=== PATIENT | male | born 1970 | race Caucasian/White ===

== ENCOUNTER 2017-01-26 14:44 | Inpatient (IN) | payer OTHER ==
--- NOTE | 2017-01-26 15:10 | EDPHY ---
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 - Social History Smoking Status: Never smoked Constitutional: Initial Vital Signs Temperature (C) 37.4 C 01/26/17 14:46 Heart Rate 119 H 01/26/17 14:46 Respiratory Rate 20 01/26/17 14:46 Blood Pressure 121/99 H 01/26/17 14:46 O2 Sat (%) 93 01/26/17 14:46 O2 Delivery Mode Room Air Allergies/Adverse Reactions: No Known Allergies Allergy (Unverified 10/28/09 13:43) Home Medications: Medication Instructions Recorded Cymbalta 10/28/09 Immodium 10/28/09 LYRICA 03/02/10 OXYBUTYNIN CHLORIDE 03/02/10 VICODIN 5-500 TABLET 03/02/10 Medical Decision Making ED Course/Re-evaluation: CHIEF COMPLAINT: HISTORY OF PRESENT ILLNESS: must have 4 elements: Location, Quality, Severity , Duration, Timing, Context, Modifying Factors, Associated Signs and Symptoms REVIEW OF SYSTEMS: A 10 point review of systems was performed and is negative with the exception of the elements mentioned in the history of present illness. PHYSICAL EXAM: HR, BP, O2 Sat, RR. Temp noted General Appearance: Alert, well hydrated, appropriate, and non-toxic appearing. Head: Atraumatic without scalp tenderness or obvious injury Eyes: Pupils equal, round, reactive to light and accommodation, EOMI, no trauma , no injection. Ears: Clear bilaterally, no perforation, normal landmarks Nose: Atraumatic, no rhinorrhea, clear. Throat: There is no erythema or exudates, no lesions, normal tonsils, mucus membranes moist. Neck: Supple, 2+ carotid upstroke, nontender, no lymphadenopathy. Respiratory: No retractions, no distress, no wheezes, and no accessory muscle use. Lungs are clear to auscultation bilaterally. Cardiovascular: Regular rate and rhythm, no murmurs, rubs, or gallops. Bilateral carotid, radial, dorsalis pedis, and posterior tibial pulses intact. Good capillary refill all extremities. Gastrointestinal: Abdomen is soft, nontender, non-distended, no masses, no rebound, no guarding, no peritoneal signs. Musculoskeletal: Normal active ROM of all extremities, atraumatic. Neurological: Alert, appropriate, and interactive. The patient has normal DTRs and non-focal cranial nerves, motor, sensory, and cerebellar exam. Skin: No rashes, good turgor, no nodules on palpation. Past medical history: Past surgical history: Family history: Social history: DIAGNOSTICS/PROCEDURES/CRITICAL CARE TIME: DIFFERENTIAL DIAGNOSIS: MEDICAL DECISION MAKING: Departure - Departure Referrals: Luis Hernandez MD [Primary Care Provider] - As per Instructions
[2017-01-26] MEDS ORDERED: ACETAMINOPHEN 500 MG TAB ONE (15:18)
[2017-01-26] MEDS ORDERED: ACETAMINOPHEN 500 MG TAB PO ONE (15:20)
[2017-01-26] MEDS ORDERED: NS 1,000 ML IV ONE (15:28)
[2017-01-26 15:30] LABS: % IMMATURE GRANULYOCYTES 0.5 % (0.0-1.1); ABSOLUTE IMMATURE GRANULOCYTES 0.06 10^3/uL (0.00-0.10); ADD DIFF? NO; ADD MORPH? NO; ADD SCAN? NO; ATYPICAL LYMPHOCYTE FLAG 0 (0-99); FRAGMENT RBC FLAG 0 (0-99); HEMATOCRIT 45.4 % (40.0-51.0); LEFT SHIFT FLG 20 (0-99); LIPEMIA HEMOLYSIS FLAG 80 (0-99); MEAN CELL HEMOGLOBIN 27.2 pg (27.9-34.1); MEAN CELL VOLUME 82.4 fL (81.5-99.8); MEAN PLATELET VOLUME 9.8 fL (8.7-11.7); PLATELET CLUMPS FLAG 0 (0-99); PLATELET COUNT 132 10^3/uL (150-400); RED BLOOD CELL COUNT 5.51 10^6/uL (4.40-6.38); RED CELL DISTRIBUTION WIDTH 14.5 % (11.5-15.2)
[2017-01-26] MEDS ORDERED: ERTAPENEM 1 GM in NS 100 ML IV ONE (15:40)
[2017-01-26] MEDS ORDERED: VANCOMYCIN HCL/NORMAL SALINE 250 ML IV ONE (15:40)
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
[2017-01-26 15:47] LABS: ANION GAP 13 mEq/L (8-16); CALCIUM 9.4 mg/dL (8.5-10.4); CARBON DIOXIDE 25 mEq/l (22-31); CHLORIDE 101 mEq/L (97-110); CREATININE 0.6 mg/dL (0.7-1.3); GLOMERULAR FILTRATION RATE > 60; GLUCOSE 111 mg/dL (70-100); POTASSIUM 4.1 mEq/L (3.5-5.2); SODIUM 139 mEq/L (134-144)
[2017-01-26 16:13] LABS: COLOR AMBER; LEUKOCYTE ESTERASE,URINE 3+ (NEGATIVE); NITRITE,URINE NEGATIVE (NEGATIVE)
[2017-01-26] MEDS ORDERED: NS 2,600 ML IV ONE (16:19)
[2017-01-26 16:29] LABS: AMORPHOUS PRESENT /hpf (NONE-1+); BACTERIA 4+ /hpf (NONE SEEN); MUCUS 1+ /lpf (NONE-1+); RBC,URINE 25-50 /hpf (0-3); WBC,URINE 50-182 /hpf (0-3)
[2017-01-26] MEDS ORDERED: ONDANSETRON 4 MG/2 ML VIAL IVP PRN (17:21)
[2017-01-26] MEDS ORDERED: ONDANSETRON DISINTEGRATING 4 MG TAB PO PRN (17:21)
[2017-01-26] MEDS ORDERED: oxyCODONE IR 5 MG TAB ONE (18:20)
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
[2017-01-26] MEDS: VANCOMYCIN 125 MG/2.5 ML UDL PO SCH (20:21)
[2017-01-26] MEDS: NS 1,000 ML IV SCH (20:21)
--- NOTE | 2017-01-26 20:22 | GCON ---
[f rep st] CONSULTATION INFECTIOUS DISEASES CONSULTATION. DATE OF CONSULTATION: 01/26/2017 REFERRING PHYSICIAN: Hue Nagy MD REASON FOR CONSULTATION: Sepsis due to left lower extremity cellulitis versus urinary tract infecti on. HISTORY OF PRESENT ILLNESS: Patient is a 46-year-old male with a past medical history of C6-7 parap legia, who I am asked to see in consultation for sepsis associated with left lower extremity celluli tis versus urinary tract infection. Patient has been followed in wound clinic for chronic left lowe r extremity ulcerations. Earlier today he developed the abrupt onset of fever and shaking chills. He was seen in [facility] Care [facility] and noted to have increasing erythema of the left lower extremity a nd described having increased sediment and foul-smelling urine. Based on these complaints he was re ferred to the emergency department for a hospital admission. Patient has an indwelling suprapubic c atheter and experiences urinary tract infection approximately once per year. His suprapubic cathete r is changed typically at the beginning of each month. He describes having increasing sediment and foul odor for the last 4 days and was started on methenamine. The patient does note that today his left lower extremity appeared more erythematous. He did not experience nausea, vomiting, or diarrhe a. No cough or shortness of breath. Patient does describe having clostridium difficile colitis skip roximately 3 months ago after treatment of urinary tract infection with ciprofloxacin. He describes having initial therapy with metronidazole, and subsequently 2 courses of oral vancomycin were requi red for resolution. In the emergency department he was noted to have a leukocytosis and temperature to 39.1. Venous lactate was normal at 1.7. He did have some hypotension, which has improved with fluid resuscitation. He notes his normal systolic blood pressure is approximately 100. Patient was given vancomycin and ertapenem empirically after blood and urine cultures were obtained. Given the above findings, I am now asked to assist in his ongoing management. PAST MEDICAL HISTORY: C6-7 paraplegia, history of sacral osteomyelitis, which he is unclear if this was due to MRSA, depression, chronic suprapubic catheter, gastroesophageal reflux, , recurrent Clos tridium difficile. PAST SURGICAL HISTORY: Cholecystectomy, cervical spine surgery. CURRENT MEDICATIONS: Status post vancomycin and ertapenem x1, Oxy IR as needed for pain, Lovenox 40 mg subcutaneous daily; prior to admission other medications included fentanyl patch, Lyrica, oxybut ynin, duloxetine, Wellbutrin, and methenamine. ALLERGIES: No known drug allergies. SOCIAL HISTORY: Patient does not smoke or drink alcohol. He lives at home with assistance from a [employer]. FAMILY HISTORY: Breast cancer and colon cancer. REVIEW OF SYSTEMS: Outside that noted in the HPI, remainder of 10-system review is unremarkable. PHYSICAL EXAMINATION: VITAL SIGNS: Temperature maximum 39.1, temperature current 37.1, heart rate 118, respiratory rate 16, blood pressure 91/53, oxygen saturation 93% on room air. GENERAL: Torie ramirez is a paraplegic male in no acute distress, who appears nontoxic. HEENT: There is no scleral icte harleen, conjunctival injection, or conjunctival petechiae. Oropharynx shows no lesions with dentition in fair repair with dry mucous membranes. There is no nasal discharge. There is no tenderness over the frontal, maxillary or mastoid area. NECK: No palpable lymphadenopathy or thyromegaly. CHEST: Clear to auscultation bilaterally without adventitious sounds. The respiratory effort is normal. CARDIOVASCULAR: Tachycardiac, without murmurs, gallops, or rubs. ABDOMEN: Soft, nontender, nondi stended. There is no palpable organomegaly. Bowel sounds are present. MUSCULOSKELETAL: Left lowe r extremity shows erythema over the dorsal aspect of the foot, extending to above the knee with some petechial elements more laterally; this is warm to palpation with associated edema; ulcerations are examined without any evidence of purulence. SKIN: See musculoskeletal exam; there is no stigmata of endocarditis. LYMPHATICS: No cervical or supraclavicular nodes palpable. NEUROLOGIC: Patient is paraplegic. He is alert and interacts appropriately. There are contractures of the hands bilate rally. LABORATORY DATA: White blood cell count 13.2, hematocrit 45.4, platelets 132, neutrophils 93%. Ser um creatinine 0.6, venous lactate 1.7. Urinalysis shows 25-50 red blood cells and 50-182 white bloo d cells with 4+ bacteria. Blood cultures and urine cultures are pending. IMPRESSION: 1. Severe sepsis likely due to left lower extremity cellulitis, with also consideration of complica loco urinary tract infection in the setting of chronic suprapubic catheter. Most likely this will be associated with beta-hemolytic streptococci or Staphylococcus aureus with methicillin-resistant Sta phylococcus aureus consideration. Given chronic ulcerations, gram-negative rods or anaerobes also o f consideration. He appears to be responding to initial fluid resuscitation, in terms of sepsis phy siology. 2. Recurrent Clostridium difficile colitis: Given recent history of recurrent Clostridium difficil e colitis and need for broad-spectrum antibiotic therapy, we will use suppressive oral vancomycin wh ile on broad-spectrum therapy. RECOMMENDATIONS: 1. Vancomycin 1.5 g IV q.12 hours. 2. Zosyn 4.5 g IV q.8 hours. 3. Vancomycin 125 mg p.o. b.i.d. 4. Followup blood and urine cultures as available. 5. Follow clinical response to above measures. Thank you for this consultation. We will continue to follow patient with you. /[id number]/MODL
[2017-01-26] MEDS: PIPERACILLIN/TAZO 4.5 GM/DEX 100 ML IV SCH (21:40)
[2017-01-26] MEDS: oxyCODONE IR 5 MG TAB PO PRN (23:53)
[2017-01-27] MEDS: VANCOMYCIN 1.5 GM in D5W 250 ML IV SCH ×2 (02:22→14:48)
[2017-01-27 05:08] LABS: HEMATOCRIT 38.6 % (40.0-51.0); HEMOGLOBIN 12.5 g/dL (13.7-17.5); MEAN CELL HEMOGLOBIN 26.9 pg (27.9-34.1); MEAN CELL HEMOGLOBIN CONCENTR. 32.4 g/dL (32.4-36.7); RED BLOOD CELL COUNT 4.65 10^6/uL (4.40-6.38); RED CELL DISTRIBUTION WIDTH 14.8 % (11.5-15.2)
[2017-01-27] MEDS: PIPERACILLIN/TAZO 4.5 GM/DEX 100 ML IV SCH ×3 (05:50→21:32)
[2017-01-27] MEDS: NS 1,000 ML IV SCH ×3 (05:50→20:26)
[2017-01-27] MEDS: oxyCODONE IR 5 MG TAB PO PRN (05:52)
[2017-01-27] MEDS: VANCOMYCIN 125 MG/2.5 ML UDL PO SCH ×2 (08:28→20:27)
[2017-01-27] MEDS ORDERED: ENOXAPARIN 40 MG/0.4 ML SYR SC SCH (09:00)
[2017-01-27] MEDS ORDERED: ERTAPENEM 1 GM in NS 100 ML IV SCH (09:00)
[2017-01-27] MEDS ORDERED: HYDROCODONE/APAP 5/325 TAB PO PRN (09:02)
[2017-01-27] MEDS ORDERED: fentaNYL 75 MCG PATCH TD SCH (09:45)
[2017-01-27] MEDS: OXYBUTYNIN CHLORIDE 5 MG TAB PO SCH ×2 (09:54→20:29)
[2017-01-27] MEDS: PREGABALIN 100 MG CAP PO SCH ×2 (09:54→20:28)
[2017-01-27] MEDS: DULoxetine 60 MG CAP PO SCH ×2 (09:54→20:28)
[2017-01-27] MEDS: buPROPion XL 150 MG TAB PO SCH ×2 (09:55→20:29)
[2017-01-27] MEDS: HYDROmorphONE/DILAUDID 1 MG/ML SYR IVP PRN ×5 (11:56→22:36)
[2017-01-27] MEDS ORDERED: METHENAMINE MANDELATE 1 GM PO SCH (12:00)
[2017-01-27 12:42] LABS: ANION GAP 11 mEq/L (8-16); CARBON DIOXIDE 22 mEq/l (22-31); CHLORIDE 103 mEq/L (97-110); CREATININE 0.7 mg/dL (0.7-1.3); GLOMERULAR FILTRATION RATE > 60; GLUCOSE 110 mg/dL (70-100); SODIUM 136 mEq/L (134-144)
--- NOTE | 2017-01-27 12:51 | WOCRNPDOC ---
[facility] Advanced Assessment Note - Skin Integrity Problem, Advanced Assess Left Lower Distal Leg Wounds Dressing Type: Allevyn Life, Hydrofera Blue Ready (secured with steristrips) Dressing Description: Clean/Dry, Intact Exudate Amount: Scant Exudate Color: Yellow Exudate Characteristic(s): Serous Integumentary Issue Intervention: Dressing Initialed & Dated (01/26; placed at [facility]), Visualized Under Dressing Tanna Wound Tissue: Erythema Tanna Wound Swelling: Mild Site Odor: None Skin Integrity Problem Comment: Patient reports that his out-patient wound care is being managed weekly by Dr. Nagy at the [facility], and that his most recent visit and dressing change there was yesterday. The clean, dry, intact dressings were left in place pending clarification from Dr. Nagy and ID about in-patient plan of care. Left Lateral Heel Pressure Injury Dressing Type: Allevyn Life Dressing Description: Not Intact, Saturated Exudate Amount: Moderate Exudate Color: Red Exudate Characteristic(s): Bloody, Dried Integumentary Issue Intervention: Dressing Changed (hydrofera blue ready foam, secured with steristrips; Allevyn covering), Dressing Initialed & Dated, Dressing Removed Tanna Wound Tissue: Erythema (streaking from foot, along LE), Macerated (applied Cavilon skin prep), Raw Tanna Wound Swelling: Mild Wound Bed Color: Red Wound Bed Constitution: Granulation Tissue Wound Edges: Irregular Site Odor: None Site Measurement - Head-to-Toe Length X Width X Depth (cm): 2 x 0.8 x 0.7 Pressure Injury Present on Admit: Yes (out-patient care at [facility]) Lymphedema Present: Yes Peripheral Edema Location & Description: 4+ pitting foot and ankle edema present. Provided KAILASH Bustos with size D tubigrip to apply to LLE. Bilateral LEs are "floating" on pillows. Skin Integrity Problem Comment: Non-intact dressing was removed and new dressing modeled on the adjacent intact dressings was placed after irrigating wound with sterile NS and periwound was protected with Cavilon prep. KAILASH Barrera assisting. Generalized Perineum Incont Assoc Dermatitis Dressing Type: Open to Air Exudate Amount: Scant Exudate Color: Clear Exudate Characteristic(s): Serous (vs urine and/or perspiration) Integumentary Issue Intervention: Barrier Cream Applied (Cavilon Durable Barrier Cream) Tanna Wound Tissue: Intact Tanna Wound Swelling: None Site Odor: None Skin Integrity Problem Comment: Skin surrounding catheter at distal abdomen and extending to perineum and scrotum are slightly moist, shiny, and reddened. Patient was in the process of eliminating stool at the time of eval. After cleaning with tanna wipes, applied Cavilon Barrier Cream; KAILASH Bustos assisting. Scars are visible above sacral and across lower lumbar areas, and patient mobility is very restricted by paraplegia: A P500 mattress was ordered to augment protection of skin integrity.
--- NOTE | 2017-01-27 14:04 | HOSPPROG ---
Hospitalist Progress Note Assessment/Plan: assessment: 46-year-old male presents with severe sepsis in the setting of cellulitis with lower extremity paralysis Plan: 1. Severe sepsis. Evidenced by fever, tachycardia, tachypnea, leukocytosis, hypotension with systolic blood pressure in the 70s, demonstrating autonomic dysregulation in the setting of infection -acute new problem to this provider further workup indicated -given the systolic blood pressure is currently 79, get venous lactic acid stat -if lactic acid level is normal, repeat at 4:00 p.m. and run normal saline at 200 cc/hour, bolusing for systolic blood pressures less than 80 -if lactic acid is abnormal, transfer to step-down unit bolus 1 L normal saline now and place central line consider pressors -continue empiric IV antibiotics -continue to monitor CBC -discussed with Dr. Issac Olea, we both agree that most likely source is cellulitic 2. cellulitis. Acute, non purulent, cover empirically with IV vancomycin and Zosyn - get left lower extremity ultrasound to ensure he has no DVT 3. paralysis. Bilateral lower extremity paralysis with absent sensation, placing him at high risk for recurrent cellulitis 4. chronic urinary retention. Suprapubic catheter, urinalysis may be more indicative of chronic catheter rather than over UTI, monitor urine culture Diet. Regular Prophylaxis. High risk patient, Lovenox 40 Code. Full Disposition. Anticipated discharge is uncertain this time, patient remains highly medically complex with high risk of morbidity and/or mortality Subjective: patient reports that he has a sore throat and headache Objective: Vital Signs Temp Pulse Resp BP Pulse Ox 37.0 C 102 H 14 79/42 L 2 L 01/27/17 11:15 01/27/17 11:15 01/27/17 11:15 01/27/17 11:15 01/27/17 11:15 Laboratory Results 01/27/17 04:17 01/27/17 12:05 01/26/17 01/27/17 01/28/17 05:59 05:59 05:59 Intake Total 4457 550 Output Total 1100 Balance 3357 550 - Physical Exam Constitutional: no apparent distress, chronically ill appearing, uncomfortable, No not in pain Cardiovascular: tachycardia, edema ( 2+ left lower extremity edema), No systolic murmur, No irregularly irregular Respiratory: no respiratory distress, no rales or rhonchi, clear to auscultation Gastrointestinal: normoactive bowel sounds, soft, non-tender abdomen, no palpable masses Skin: other ( blotchy erythematous patches across the left lower extremity from the knee distally, mild blanchable bili, tense edematous skin without open wounds noted) Neurologic: AAOx3, weakness ( motor strength 0/5 bilateral lower extremities), No sensation intact bilaterally ( absent sensation bilaterally) Psychiatric: interacting appropriately, not anxious, not encephalopathic, thought process linear ICD10 Worksheet Patient Problems: Problems Problem Status Onset Cellulitis Acute Paraplegia Acute Severe sepsis with acute organ dysfunction Acute C. difficile diarrhea Acute 09/21/16
[2017-01-27] MEDS: METHENAMINE MANDELATE 1 GM PO SCH ×2 (16:42→20:30)
--- NOTE | 2017-01-27 17:50 | PCMIDPN ---
Assessment/Plan: Assessment/Plan: * Severe sepsis due to left lower extremity cellulitis with possible contribution from catheter associated UTI (chronic suprapubic catheter): Clinically improved with antibiotic therapy and management of sepsis physiology. Cellulitis without significant interval change although lymphangitis in left thigh noted. 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 Continue empiric vancomycin and Zosyn pending culture data. Follow creatinine and assess vancomycin trough tomorrow. * Left lower extremity DVT: Reviewed findings and plan with hospitalist. 01/27/17 17:46 01/27/17 17:48 Subjective: Feels better today without rigors overnight. Did have some shorter duration chills present. Objective: Vital Signs Temp Pulse Resp BP Pulse Ox 36.9 C 103 H 8 L 87/46 L 94 01/27/17 15:43 01/27/17 15:43 01/27/17 15:43 01/27/17 15:43 01/27/17 15:43 Laboratory Results 01/27/17 04:17 01/27/17 12:05 01/26/17 01/27/17 01/28/17 05:59 05:59 05:59 Intake Total 4457 550 Output Total 1100 Balance 3357 550 Vancomycin # 1 Zosyn # 1 Blood cultures x2 pending Urine culture with growth of lactose fermenting gram-negative angélica x2 Ultrasound of left lower extremity showing DVT - Physical Exam General Appearance: alert, no apparent distress EENT: No thrush Respiratory: lungs clear, No respiratory distress Cardiac/Chest: tachycardia Extremities: inflammation (Erythema extending from foot to knee region which is similar in appearance to yesterday; no bulla present; no change in chronic ulcerations over lower extremity), swelling (3+ edema left lower extremity) Abdomen: non-tender, No distended Lymphatic: other (Lymphangitis present in left medial thigh) ICD10 Worksheet Patient Problems: Problems Problem Status Onset Cellulitis Acute Paraplegia Acute Severe sepsis with acute organ dysfunction Acute C. difficile diarrhea Acute 09/21/16
[2017-01-27] MEDS ORDERED: NS 1,000 ML IV ONE (18:07)
[2017-01-27] MEDS: WARFARIN SODIUM 5 MG TAB PO SCH (18:12)
[2017-01-27] MEDS: ACETAMINOPHEN 325 MG TAB PO PRN (18:13)
[2017-01-27] MEDS ORDERED: KETOROLAC 30 MG/1 ML SDV IVP ONE (18:50)
[2017-01-27] MEDS: ENOXAPARIN 100 MG/ML SYR SC SCH (20:27)
[2017-01-28] MEDS: NS 1,000 ML IV SCH (01:53)
[2017-01-28] MEDS: HYDROmorphONE/DILAUDID 1 MG/ML SYR IVP PRN ×9 (01:53→21:27)
[2017-01-28] MEDS: METHENAMINE MANDELATE 1 GM PO SCH ×4 (04:31→21:19)
[2017-01-28 04:32] LABS: % IMMATURE GRANULYOCYTES 0.6 % (0.0-1.1); ABSOLUTE IMMATURE GRANULOCYTES 0.04 10^3/uL (0.00-0.10); ADD DIFF? NO; ADD MORPH? NO; ADD SCAN? NO; ATYPICAL LYMPHOCYTE FLAG 0 (0-99); FRAGMENT RBC FLAG 0 (0-99); HEMATOCRIT 33.4 % (40.0-51.0); HEMOGLOBIN 10.8 g/dL (13.7-17.5); LEFT SHIFT FLG 10 (0-99); LIPEMIA HEMOLYSIS FLAG 80 (0-99); MEAN CELL HEMOGLOBIN 26.9 pg (27.9-34.1); MEAN CELL HEMOGLOBIN CONCENTR. 32.3 g/dL (32.4-36.7); MEAN CELL VOLUME 83.3 fL (81.5-99.8); MEAN PLATELET VOLUME 10.3 fL (8.7-11.7); PLATELET CLUMPS FLAG 0 (0-99); PLATELET COUNT 84 10^3/uL (150-400); RED BLOOD CELL COUNT 4.01 10^6/uL (4.40-6.38); RED CELL DISTRIBUTION WIDTH 14.9 % (11.5-15.2)
[2017-01-28 04:36] LABS: INR 1.67 (0.83-1.16); PROTIME(PATIENT) 19.7 SEC (12.0-15.0)
[2017-01-28 04:46] LABS: ANION GAP 5 mEq/L (8-16); CALCIUM 7.6 mg/dL (8.5-10.4); CARBON DIOXIDE 23 mEq/l (22-31); CHLORIDE 111 mEq/L (97-110); CREATININE 0.6 mg/dL (0.7-1.3); GLOMERULAR FILTRATION RATE > 60; GLUCOSE 94 mg/dL (70-100); POTASSIUM 2.9 mEq/L (3.5-5.2); SODIUM 139 mEq/L (134-144)
[2017-01-28] MEDS: VANCOMYCIN 1.5 GM in D5W 250 ML IV SCH (04:55)
[2017-01-28] MEDS: PIPERACILLIN/TAZO 4.5 GM/DEX 100 ML IV SCH (06:33)
[2017-01-28] MEDS: fentaNYL 75 MCG PATCH TD SCH (06:34)
[2017-01-28] MEDS: OXYBUTYNIN CHLORIDE 5 MG TAB PO SCH ×2 (08:24→21:28)
[2017-01-28] MEDS: buPROPion XL 150 MG TAB PO SCH ×2 (08:24→21:28)
[2017-01-28] MEDS: PREGABALIN 100 MG CAP PO SCH ×2 (08:24→21:28)
[2017-01-28] MEDS: DULoxetine 60 MG CAP PO SCH ×2 (08:24→21:28)
[2017-01-28] MEDS ORDERED: POTASSIUM CL 20 MEQ TAB PO ONE (08:47)
[2017-01-28] MEDS ORDERED: MAGNESIUM SULF 1 GM/DEXTROSE 100 ML IV ONE (08:47)
[2017-01-28] MEDS: ENOXAPARIN 100 MG/ML SYR SC SCH ×2 (09:15→21:29)
[2017-01-28] MEDS: VANCOMYCIN 125 MG/2.5 ML UDL PO SCH ×2 (09:17→21:28)
[2017-01-28] MEDS: HYDROmorphONE/DILAUDID 2 MG TAB PO PRN (09:20)
[2017-01-28] MEDS: D5W 1/2 NS W/ 40 KCl/L 1,000 ML IV SCH ×2 (10:10→18:43)
[2017-01-28] MEDS: oxyCODONE IR 5 MG TAB PO PRN (10:32)
--- NOTE | 2017-01-28 11:31 | PCMIDPN ---
Assessment/Plan: #Sepsis secondary to LLE cellulitis +/- complicated UTI with suprapubic in place - clinically improved. WBC decreasing, Hemodynamics improved. Still w fever yesterday # Severe LLE cellulitis, suspect strep mediated based on clinical appearance. First exam today, but based on documentation of other providers exams, erythema improved Recommendations: --Narrow antibiotics to ceftriaxone alone will cover Klebs in urine and MSSA and streptococcus. No h/o MRSA. --Hold off on compression L leg --elevated L leg as feasible --dc zosyn and vancomycin --assess if need to change suprapubic cath Microbiology 01/26/17 16:00 Urine,Suprapubic 100K Klebsiella Oxytoca; Gram Neg Praveen Lactose [employer]#2 01/26/17 15:50 Blood Cx (2) NGTD Abx # 2 zosyn/vancomycin Subjective: patient feeling a bit better increased stool output Objective: Vital Signs Temp Pulse Resp BP Pulse Ox 36.5 C 83 16 110/70 96 01/28/17 09:24 01/28/17 09:24 01/28/17 09:24 01/28/17 09:24 01/28/17 09:24 Laboratory Results 01/28/17 04:20 01/28/17 04:10 01/27/17 01/28/17 01/29/17 05:59 05:59 05:59 Intake Total 4457 4071 Output Total 1100 3600 900 Balance 3357 471 -900 - Physical Exam General Appearance: alert, no apparent distress, non-toxic EENT: No scleral icterus Respiratory: lungs clear Neck: supple Cardiac/Chest: regular rate, rhythm Extremities: swelling (LLE to just above knee), erythema (prominent erythema dorsum of foot, L ankle, fainter mid tomas), other (lymphangitis L medial thigh resolved) Abdomen: non-tender, soft Male Genitalia: other (suprapubic), No scrotal edema Skin: No rash Neuro/Psych: alert, oriented x 3, depressed affect ICD10 Worksheet Patient Problems: Problems Problem Status Onset Cellulitis Acute Paraplegia Acute Severe sepsis with acute organ dysfunction Acute C. difficile diarrhea Acute 09/21/16
[2017-01-28 12:07] LABS: ALBUMIN 2.2 g/dL (3.5-5.0); BILIRUBIN,TOTAL 0.8 mg/dL (0.1-1.4); BILIRUBIN-CONJUGATED 0.4 mg/dL (0.0-0.5); BILIRUBIN-UNCONJUGATED 0.4 mg/dL (0.0-1.1); TOTAL PROTEIN 4.8 g/dL (6.3-8.2)
[2017-01-28] MEDS: cefTRIAXone 2 GM in D5W 50 ML IV SCH (12:45)
--- NOTE | 2017-01-28 15:24 | SOAPPROG ---
SOAP Progress Note Assessment/Plan: Assessment: 46yo M well-known to our service for chronic LLE wounds, seen at outpatient [facility] Refer to consult note no 01/26 for more detail on wounds Admitted with UTI, cellulitis and severe edema LLE. Found to have nonocclusive DVT LLE Wounds look improved compared to admission May consider modified 2-layer wrap for edema Seen c Dr. Nagy and Shila RN. Will continue to follow S: feeling better compared to admission. No pain in LLE, neuropathy O: laying in bed, comfortable, NAD Paraplegia No increased WOB 3+ pitting edema LLE, no edema RLE LLE wounds with dressings intact Erythema patchy and less vibrant than admission Objective: Vital Signs Temp Pulse Resp BP Pulse Ox 37.1 C 85 16 108/64 96 01/28/17 11:39 01/28/17 11:39 01/28/17 11:39 01/28/17 11:39 01/28/17 11:39 Laboratory Results 01/28/17 04:20 01/28/17 04:10 01/27/17 01/28/17 01/29/17 05:59 05:59 05:59 Intake Total 4457 4071 Output Total 1100 3600 900 Balance 3357 471 -900 PT 19.7 SEC (12.0-15.0) H 01/28/17 04:10 INR 1.67 (0.83-1.16) H 01/28/17 04:10 ICD10 Worksheet Patient Problems: Problems Problem Status Onset Cellulitis Acute Paraplegia Acute Severe sepsis with acute organ dysfunction Acute C. difficile diarrhea Acute 09/21/16
[2017-01-28] MEDS: WARFARIN SODIUM 5 MG TAB PO SCH (16:41)
--- NOTE | 2017-01-28 16:45 | HOSPPROG ---
Hospitalist Progress Note Assessment/Plan: assessment: 46-year-old male presents with severe sepsis in the setting of cellulitis with lower extremity paralysis Plan: 1. Severe sepsis. Evidenced by fever, tachycardia, tachypnea, leukocytosis, hypotension with systolic blood pressure in the 70s, demonstrating autonomic dysregulation in the setting of infection -cont IVF, ID adjusted IV Abx -cont monitor CBC/fever curve 2. cellulitis. Acute, non purulent, cont on CTX per ID - d/w Dr. Nagy, she does not recommend surgical debridement at this time 3. paralysis. Bilateral lower extremity paralysis with absent sensation, placing him at high risk for recurrent cellulitis 4. chronic urinary retention. Suprapubic catheter, urinalysis may be more indicative of chronic catheter rather than over UTI, monitor urine culture 5. Possible CAUTI. POA, klebsiella on UCx, cont CTX 6. DVT. POA, acute, LLE not totally occlusive so it is likely only contributing to the size of LLE - lytics not indicated - placed on lovenox/coumadin - monitoring platelet count, does not meet HIT criteria - daily INR Diet. Regular Prophylaxis. High risk patient, Lovenox therapeutic Code. Full Disposition. Anticipated discharge is uncertain this time, patient remains highly medically complex with high risk of morbidity and/or mortality Subjective: Patient has some ongoing chills, left lower extremity remains painful Objective: Vital Signs Temp Pulse Resp BP Pulse Ox 36.6 C 84 16 97/47 L 91 L 01/28/17 16:00 01/28/17 16:00 01/28/17 16:00 01/28/17 16:00 01/28/17 16:00 Laboratory Results 01/28/17 04:20 01/28/17 04:10 01/27/17 01/28/17 01/29/17 05:59 05:59 05:59 Intake Total 4457 4071 Output Total 1100 3600 2900 Balance 3357 471 -2900 PT 19.7 SEC (12.0-15.0) H 01/28/17 04:10 INR 1.67 (0.83-1.16) H 01/28/17 04:10 - Physical Exam Constitutional: no apparent distress, chronically ill appearing, uncomfortable, No unkempt Cardiovascular: edema (2+ left lower extremity), No systolic murmur, No irregularly irregular, No tachycardia Respiratory: no respiratory distress, no rales or rhonchi, clear to auscultation Gastrointestinal: normoactive bowel sounds, soft, non-tender abdomen, no palpable masses Skin: other (Mildly blanching left lower extremity with numerous areas of abrasion, confluent patches, tight edema) Neurologic: AAOx3, weakness (Absent motor left lower extremity), No sensation intact bilaterally (Absent sensation left lower extremity) Psychiatric: interacting appropriately, not anxious, not encephalopathic, thought process linear ICD10 Worksheet Patient Problems: Problems Problem Status Onset Cellulitis Acute Paraplegia Acute Severe sepsis with acute organ dysfunction Acute C. difficile diarrhea Acute 09/21/16
[2017-01-28] MEDS: ACETAMINOPHEN 325 MG TAB PO PRN (18:04)
[2017-01-29] MEDS: HYDROmorphONE/DILAUDID 1 MG/ML SYR IVP PRN ×5 (01:43→22:20)
[2017-01-29 05:26] LABS: % IMMATURE GRANULYOCYTES 0.4 % (0.0-1.1); ABSOLUTE IMMATURE GRANULOCYTES 0.02 10^3/uL (0.00-0.10); ADD DIFF? NO; ADD MORPH? NO; ADD SCAN? NO; ATYPICAL LYMPHOCYTE FLAG 0 (0-99); FRAGMENT RBC FLAG 0 (0-99); HEMATOCRIT 33.6 % (40.0-51.0); LEFT SHIFT FLG 0 (0-99); LIPEMIA HEMOLYSIS FLAG 80 (0-99); MEAN CELL HEMOGLOBIN 27.1 pg (27.9-34.1); MEAN CELL HEMOGLOBIN CONCENTR. 32.7 g/dL (32.4-36.7); MEAN CELL VOLUME 82.8 fL (81.5-99.8); PLATELET CLUMPS FLAG 10 (0-99); PLATELET COUNT 91 10^3/uL (150-400); RED BLOOD CELL COUNT 4.06 10^6/uL (4.40-6.38)
[2017-01-29 05:39] LABS: INR 1.29 (0.83-1.16); PROTIME(PATIENT) 16.1 SEC (12.0-15.0)
[2017-01-29 05:40] LABS: ANION GAP 5 mEq/L (8-16); CALCIUM 8.1 mg/dL (8.5-10.4); CARBON DIOXIDE 25 mEq/l (22-31); CHLORIDE 108 mEq/L (97-110); CREATININE 0.5 mg/dL (0.7-1.3); GLOMERULAR FILTRATION RATE > 60; GLUCOSE 128 mg/dL (70-100); MAGNESIUM 1.7 mg/dL (1.6-2.3); SODIUM 138 mEq/L (134-144)
[2017-01-29] MEDS: cefTRIAXone 2 GM in D5W 50 ML IV SCH (08:55)
[2017-01-29] MEDS: DULoxetine 60 MG CAP PO SCH ×2 (08:59→20:59)
[2017-01-29] MEDS: PREGABALIN 100 MG CAP PO SCH ×2 (08:59→20:59)
[2017-01-29] MEDS: buPROPion XL 150 MG TAB PO SCH ×2 (08:59→20:59)
[2017-01-29] MEDS: VANCOMYCIN 125 MG/2.5 ML UDL PO SCH ×2 (08:59→20:59)
[2017-01-29] MEDS: OXYBUTYNIN CHLORIDE 5 MG TAB PO SCH ×2 (08:59→20:59)
[2017-01-29] MEDS: ENOXAPARIN 100 MG/ML SYR SC SCH ×2 (08:59→20:58)
[2017-01-29] MEDS: ACETAMINOPHEN 325 MG TAB PO PRN (14:14)
--- NOTE | 2017-01-29 14:18 | PCMIDPN ---
Assessment/Plan: # Sepsis secondary to LLE cellulitis +/- complicated UTI with suprapubic in place. Sepsis resolved # Severe LLE cellulitis, suspect strep mediated based on clinical appearance. Erythema LLE much improved, WBC normal, only low grade temp. Still needs IV therapy # Thrombocytopenia : could be due to sepsis, continue to monitor. further w/u per hospitalists. Unlikely side effect of antibiotics. Recommendations: --continue IV ceftriaxone- covers MSSA, strep and both GNRs in urine --duration of IV antibiotics to be determined based on ongoing clinical response. Microbiology 01/26/17 16:00 Urine,Suprapubic 100K Klebsiella Oxytoca; 100K Citrobacter 01/26/17 15:50 Blood Cx (2) NGTD Abx # 3 ceftriaxone 2gm IV daily #2 Subjective: feeling much better, wanting to get up into his chair Objective: Vital Signs Temp Pulse Resp BP Pulse Ox 37.3 C 91 14 110/58 L 89 L 01/29/17 08:00 01/29/17 08:00 01/29/17 08:00 01/29/17 08:00 01/29/17 08:00 Laboratory Results 01/29/17 05:14 01/29/17 05:14 01/28/17 01/29/17 01/30/17 05:59 05:59 05:59 Intake Total 4071 7000 500 Output Total 3600 6650 Balance 471 350 500 General Appearance: alert, no apparent distress, non-toxic EENT: No scleral icterus Respiratory: lungs clear Neck: supple Cardiac/Chest: regular rate, rhythm Extremities: swelling LLE to just above knee - slight improvement; erythema dorsum of foot (with recession today), L ankle, fainter mid tomas, no lymphangitis Abdomen: non-tender, soft Male Genitalia: suprapubic cath, No scrotal edema Skin: No rash Neuro/Psych: alert, oriented x 3, depressed affect ICD10 Worksheet Patient Problems: Problems Problem Status Onset Cellulitis Acute Paraplegia Acute Severe sepsis with acute organ dysfunction Acute C. difficile diarrhea Acute 09/21/16
--- NOTE | 2017-01-29 14:51 | HOSPPROG ---
Hospitalist Progress Note Assessment/Plan: assessment: 46-year-old male presents with severe sepsis in the setting of cellulitis with lower extremity paralysis Plan: 1. Severe sepsis. Evidenced by fever, tachycardia, tachypnea, leukocytosis, hypotension with systolic blood pressure in the 70s, demonstrating autonomic dysregulation in the setting of infection -stop IVF given evolving volume overload -cont monitor CBC/fever curve 2. Cellulitis. Acute, non purulent, cont on CTX per ID to cover possible staph/ strep, no hx MRSA - surg does not recommend surgical debridement at this time 3. Paralysis. Bilateral lower extremity paralysis with absent sensation, placing him at high risk for recurrent cellulitis 4. Chronic urinary retention. Suprapubic catheter, urinalysis may be more indicative of chronic catheter rather than over UTI, monitor urine culture 5. Possible CAUTI. POA, klebsiella and citrobacter on UCx, CTX sensitive 6. DVT. POA, acute, LLE not totally occlusive so it is likely only contributing to the size of LLE - lytics not indicated - cont on lovenox/coumadin - monitoring platelet count, does not meet HIT criteria - daily INR 7. Suspected atelectasis. Acute, worsened by immobility, attempt to get up to chair and use IS Diet. Regular Prophylaxis. High risk patient, Lovenox therapeutic Code. Full Disposition. Anticipated discharge is 01/30, pending continued clinical improvement of LLE cellulitis Subjective: Reports shortness of breath when lying on left side Objective: Vital Signs Temp Pulse Resp BP Pulse Ox 37.3 C 91 14 110/58 L 89 L 01/29/17 08:00 01/29/17 08:00 01/29/17 08:00 01/29/17 08:00 01/29/17 08:00 Laboratory Results 01/29/17 05:14 01/29/17 05:14 01/28/17 01/29/17 01/30/17 05:59 05:59 05:59 Intake Total 4071 7000 500 Output Total 3600 6650 3500 Balance 471 350 -3000 PT 16.1 SEC (12.0-15.0) H 01/29/17 05:14 INR 1.29 (0.83-1.16) H 01/29/17 05:14 - Pending Discharge Pending Discharge Within 24 Hours: Yes Pending Discharge Date: 01/30/17 Pending Discharge Time: 11:00 - Physical Exam Constitutional: no apparent distress, not in pain, chronically ill appearing, No uncomfortable Cardiovascular: regular rate and rhythym, no murmur, rub, or gallop, edema ( left lower extremity 2+) Respiratory: inspiratory crackles ( bilateral lateral bases), No reduced air movement, No expiratory wheeze, No bronchial breath sounds Gastrointestinal: normoactive bowel sounds, soft, non-tender abdomen, no palpable masses Skin: other ( fading confluent erythema patches left lower extremity distal to the knee, left foot is still room wrists, edematous, several areas of skin breakdown bandaged) Neurologic: AAOx3, weakness ( 0/5 motor and lower extremities), No sensation intact bilaterally ( absent) Psychiatric: interacting appropriately, not anxious, not encephalopathic, thought process linear ICD10 Worksheet Patient Problems: Problems Problem Status Onset C. difficile diarrhea Acute 09/21/16 Cellulitis Acute Severe sepsis with acute organ dysfunction Acute Paraplegia Acute
--- NOTE | 2017-01-29 15:24 | SOAPPROG ---
SOAP Progress Note Assessment/Plan: Assessment: afebrile/ foot wound ok with decreased erythema/ foot still very edematous compared to the right Plan:continue dressing changes/ elevation 01/29/17 15:23 Objective: Vital Signs Temp Pulse Resp BP Pulse Ox 37.2 C 101 H 16 115/64 90 L 01/29/17 15:01 01/29/17 15:01 01/29/17 15:01 01/29/17 15:01 01/29/17 15:01 Laboratory Results 01/29/17 05:14 01/29/17 05:14 01/28/17 01/29/17 01/30/17 05:59 05:59 05:59 Intake Total 4071 7000 500 Output Total 3600 6650 3500 Balance 471 350 -3000 PT 16.1 SEC (12.0-15.0) H 01/29/17 05:14 INR 1.29 (0.83-1.16) H 01/29/17 05:14 ICD10 Worksheet Patient Problems: Problems Problem Status Onset Cellulitis Acute Paraplegia Acute Severe sepsis with acute organ dysfunction Acute C. difficile diarrhea Acute 09/21/16
[2017-01-29] MEDS: METHENAMINE MANDELATE 1 GM PO SCH ×3 (16:15→20:59)
[2017-01-29] MEDS: WARFARIN SODIUM 5 MG TAB PO SCH (16:54)
[2017-01-30] MEDS: HYDROmorphONE/DILAUDID 1 MG/ML SYR IVP PRN (04:48)
[2017-01-30 04:53] LABS: % IMMATURE GRANULYOCYTES 0.4 % (0.0-1.1); ABSOLUTE IMMATURE GRANULOCYTES 0.02 10^3/uL (0.00-0.10); ADD DIFF? NO; ADD MORPH? NO; ADD SCAN? NO; ATYPICAL LYMPHOCYTE FLAG 0 (0-99); FRAGMENT RBC FLAG 0 (0-99); HEMATOCRIT 35.7 % (40.0-51.0); HEMOGLOBIN 11.9 g/dL (13.7-17.5); LEFT SHIFT FLG 10 (0-99); LIPEMIA HEMOLYSIS FLAG 80 (0-99); MEAN CELL HEMOGLOBIN 27.6 pg (27.9-34.1); MEAN CELL HEMOGLOBIN CONCENTR. 33.3 g/dL (32.4-36.7); MEAN CELL VOLUME 82.8 fL (81.5-99.8); MEAN PLATELET VOLUME 10.3 fL (8.7-11.7); PLATELET CLUMPS FLAG 0 (0-99); PLATELET COUNT 107 10^3/uL (150-400); RED BLOOD CELL COUNT 4.31 10^6/uL (4.40-6.38)
[2017-01-30 04:59] LABS: INR 1.22 (0.83-1.16); PROTIME(PATIENT) 15.4 SEC (12.0-15.0)
[2017-01-30] MEDS: METHENAMINE MANDELATE 1 GM PO SCH ×4 (05:05→22:09)
[2017-01-30 05:10] LABS: ANION GAP 7 mEq/L (8-16); CALCIUM 8.5 mg/dL (8.5-10.4); CARBON DIOXIDE 29 mEq/l (22-31); CHLORIDE 101 mEq/L (97-110); CREATININE 0.5 mg/dL (0.7-1.3); GLOMERULAR FILTRATION RATE > 60; GLUCOSE 102 mg/dL (70-100); MAGNESIUM 1.8 mg/dL (1.6-2.3); POTASSIUM 4.2 mEq/L (3.5-5.2); SODIUM 137 mEq/L (134-144)
[2017-01-30] MEDS: fentaNYL 75 MCG PATCH TD SCH (06:17)
[2017-01-30] MEDS: PREGABALIN 100 MG CAP PO SCH ×2 (07:39→20:46)
[2017-01-30] MEDS: VANCOMYCIN 125 MG/2.5 ML UDL PO SCH ×2 (07:39→20:46)
[2017-01-30] MEDS: cefTRIAXone 2 GM in D5W 50 ML IV SCH (07:39)
[2017-01-30] MEDS: ENOXAPARIN 100 MG/ML SYR SC SCH ×2 (07:39→20:46)
[2017-01-30] MEDS: DULoxetine 60 MG CAP PO SCH ×2 (07:39→20:46)
[2017-01-30] MEDS: buPROPion XL 150 MG TAB PO SCH ×2 (07:39→20:46)
[2017-01-30] MEDS: OXYBUTYNIN CHLORIDE 5 MG TAB PO SCH ×2 (07:39→20:46)
--- NOTE | 2017-01-30 11:03 | PCMIDPN ---
Assessment/Plan: # Sepsis secondary to LLE cellulitis +/- complicated UTI with suprapubic in place. Sepsis resolved. Last fever 01/27 # Severe LLE cellulitis, suspect strep mediated based on clinical appearance. Erythema LLE much improved, WBC normal, only low grade temp. Still needs IV therapy # Thrombocytopenia , improving, likely due to sepsis Recommendations: --continue IV ceftriaxone- covers MSSA, strep and both GNRs in urine --another day of IV, may be able to dc tomorrow on PO antibiotic if continued rapid response. Microbiology 01/26/17 16:00 Urine,Suprapubic 100K Klebsiella Oxytoca; 100K Citrobacter 01/26/17 15:50 Blood Cx (2) NGTD Abx # 4 ceftriaxone 2gm IV daily #3 Subjective: feeling well today no c/o Objective: Vital Signs Temp Pulse Resp BP Pulse Ox 36.7 C 77 14 108/63 90 L 01/30/17 07:48 01/30/17 07:48 01/30/17 07:48 01/30/17 07:48 01/30/17 07:48 Laboratory Results 01/30/17 04:16 01/30/17 04:16 01/29/17 01/30/17 01/31/17 05:59 05:59 05:59 Intake Total 7000 1000 Output Total 6650 6950 800 Balance 350 -5950 -800 General Appearance: alert, no apparent distress, non-toxic, chr ill appearance EENT: No scleral icterus Respiratory: lungs clear Neck: supple Cardiac/Chest: regular rate, rhythm Extremities: swelling LLE to just above knee - slight improvement; erythema dorsum of foot much fainter today, L ankle, fainter mid tomas, no lymphangitis, edema continues to improve, noticeable wrinkling. Obvious wasting of all 4 ext with underlying spinal cord injury Abdomen: non-tender, soft Male Genitalia: suprapubic cath, No scrotal edema Skin: No rash Neuro/Psych: alert, oriented x 3 ICD10 Worksheet Patient Problems: Problems Problem Status Onset Cellulitis Acute Paraplegia Acute Severe sepsis with acute organ dysfunction Acute C. difficile diarrhea Acute 09/21/16
--- NOTE | 2017-01-30 14:28 | HOSPPROG ---
Hospitalist Progress Note Assessment/Plan: assessment: 46-year-old male presents with severe sepsis in the setting of cellulitis with lower extremity paralysis Plan: 1. Severe sepsis. Resolved 2. Cellulitis. Acute, non purulent, cont on CTX per ID to cover possible staph/ strep, no hx MRSA - surg does not recommend surgical debridement at this time - clinically improving but skin has just become less tense today, warrants another 24hrs IV abx and close reassessment - d/w Dr. Sullivan, she recommends administering dose of IV CTX tomorrow and then considering PO Abx moving forward 3. Paralysis. Bilateral lower extremity paralysis with absent sensation, placing him at high risk for recurrent cellulitis 4. Chronic urinary retention. Suprapubic catheter, urinalysis may be more indicative of chronic catheter rather than over UTI, monitor urine culture 5. Possible CAUTI. POA, klebsiella and citrobacter on UCx, CTX sensitive 6. DVT. POA, acute, LLE not totally occlusive so it is likely only contributing to the size of LLE - lytics not indicated - cont on lovenox/coumadin (increase coumadin to 7.5mg daily since INR not increasing) - monitoring platelet count, does not meet HIT criteria - daily INR - will require outpt INR/coumadin clinic arrangements 7. Suspected atelectasis. Acute, worsened by immobility, attempt to get up to chair and use IS Diet. Regular Prophylaxis. High risk patient, Lovenox therapeutic Code. Full Disposition. Anticipated discharge is 01/31, pending continued clinical improvement of LLE cellulitis Subjective: patient reports that shooting pains in his left lower extremity have decreased, not experiencing diarrhea Objective: Vital Signs Temp Pulse Resp BP Pulse Ox 36.7 C 77 14 108/63 90 L 01/30/17 07:48 01/30/17 07:48 01/30/17 07:48 01/30/17 07:48 01/30/17 07:48 Laboratory Results 01/30/17 04:16 01/30/17 04:16 01/29/17 01/30/17 01/31/17 05:59 05:59 05:59 Intake Total 7000 1000 Output Total 6650 6950 800 Balance 350 -5950 -800 PT 15.4 SEC (12.0-15.0) H 01/30/17 04:16 INR 1.22 (0.83-1.16) H 01/30/17 04:16 - Pending Discharge Pending Discharge Within 24 Hours: Yes Pending Discharge Date: 01/31/17 Pending Discharge Time: 11:00 - Physical Exam Constitutional: no apparent distress, not in pain, chronically ill appearing, No uncomfortable Cardiovascular: regular rate and rhythym, no murmur, rub, or gallop, edema ( 2+ lower extremity edema) Respiratory: no respiratory distress, no rales or rhonchi, clear to auscultation Gastrointestinal: normoactive bowel sounds, soft, non-tender abdomen, no palpable masses Skin: other ( fading areas of confluent erythema left lower extremity, she drinking and mild fissuring of the skin on the dorsum of his left foot, less tense than day prior, some bandaged abrasions along the lateral aspect of his left lower extremity without any fluctuant pockets) Neurologic: AAOx3, weakness ( motor 0/5 left lower extremities), No sensation intact bilaterally ( absent sensation lower extremity) Psychiatric: interacting appropriately, not anxious, not encephalopathic, thought process linear ICD10 Worksheet Patient Problems: Problems Problem Status Onset C. difficile diarrhea Acute 09/21/16 Cellulitis Acute Severe sepsis with acute organ dysfunction Acute Paraplegia Acute
[2017-01-30] MEDS: WARFARIN SODIUM 5 MG TAB PO SCH (16:12)
[2017-01-30] MEDS: HYDROmorphONE/DILAUDID 2 MG TAB PO PRN (20:46)
[2017-01-31 04:53] LABS: % IMMATURE GRANULYOCYTES 0.5 % (0.0-1.1); ABSOLUTE IMMATURE GRANULOCYTES 0.02 10^3/uL (0.00-0.10); ADD DIFF? NO; ADD MORPH? NO; ADD SCAN? NO; ATYPICAL LYMPHOCYTE FLAG 30 (0-99); FRAGMENT RBC FLAG 0 (0-99); HEMATOCRIT 37.3 % (40.0-51.0); HEMOGLOBIN 12.2 g/dL (13.7-17.5); LEFT SHIFT FLG 0 (0-99); LIPEMIA HEMOLYSIS FLAG 80 (0-99); MEAN CELL HEMOGLOBIN 27.4 pg (27.9-34.1); MEAN CELL HEMOGLOBIN CONCENTR. 32.7 g/dL (32.4-36.7); MEAN CELL VOLUME 83.8 fL (81.5-99.8); MEAN PLATELET VOLUME 10.5 fL (8.7-11.7); PLATELET CLUMPS FLAG 10 (0-99); PLATELET COUNT 133 10^3/uL (150-400); RED BLOOD CELL COUNT 4.45 10^6/uL (4.40-6.38); RED CELL DISTRIBUTION WIDTH 15.2 % (11.5-15.2)
[2017-01-31 05:07] LABS: INR 1.23 (0.83-1.16); PROTIME(PATIENT) 15.5 SEC (12.0-15.0)
[2017-01-31] MEDS: METHENAMINE MANDELATE 1 GM PO SCH ×4 (06:00→21:48)
[2017-01-31] MEDS: DULoxetine 60 MG CAP PO SCH ×2 (09:20→20:45)
[2017-01-31] MEDS: cefTRIAXone 2 GM in D5W 50 ML IV SCH (09:20)
[2017-01-31] MEDS: VANCOMYCIN 125 MG/2.5 ML UDL PO SCH ×2 (09:20→20:45)
[2017-01-31] MEDS: OXYBUTYNIN CHLORIDE 5 MG TAB PO SCH ×2 (09:20→20:45)
[2017-01-31] MEDS: buPROPion XL 150 MG TAB PO SCH ×2 (09:20→20:45)
[2017-01-31] MEDS: ENOXAPARIN 100 MG/ML SYR SC SCH ×2 (09:20→20:45)
[2017-01-31] MEDS: PREGABALIN 100 MG CAP PO SCH ×2 (09:20→20:45)
--- NOTE | 2017-01-31 16:01 | PCMIDPN ---
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 Patient is improving on IV ceftriaxone as evidenced by decreased swelling of the left lower extremity and minor superficial wrinkling of the foot. The overall plan to transition this patient to oral antibiotics upon discharge is reasonable 1 however I think that he needs 1-2 days more IV antibiotic therapy prior to the oral transition. Given his spinal cord transection and loss of fine motor control the hands, this would be an excessive hardship at home. Will re-evaluate tomorrow and probably discharge home on oral coverage for likely streptococcal infection. Bacteriuria-unclear whether this is insurance representative of a true urinary tract infection or not. Nevertheless this ceftriaxone covers both isolates. Plan: 1. Continue IV ceftriaxone for now. 2. Observe for improvement of the left lower extremity. 3. If current trends continue plan to private branch exchange service advisor to oral cephalexin 500 mg p.o. four times daily upon discharge. 01/31/17 16:30 Subjective: Patient is resting comfortably in his wheelchair in his hospital room. He notes significant decrease in size left lower extremity. Notes that the left lower extremity increases in size when he puts it dependent. No return of fevers or chills. Objective: Ceftriaxone # 4 Vital Signs Temp Pulse Resp BP Pulse Ox 36.4 C 79 17 105/61 91 L 01/31/17 00:00 01/31/17 00:00 01/31/17 00:00 01/31/17 00:00 01/31/17 00:00 Laboratory Results 01/31/17 04:35 01/30/17 04:16 01/30/17 01/31/17 02/01/17 05:59 05:59 05:59 Intake Total 1000 Output Total 1403 2900 Balance -5950 -2900 - Physical Exam General Appearance: WD/WN, alert, no apparent distress, non-toxic Respiratory: lungs clear, normal breath sounds, No respiratory distress Cardiac/Chest: regular rate, rhythm, No tachycardia Extremities: non-tender, inflammation (Mild), swelling (Left side), erythema ( Mild erythema left lower extremity), No normal inspection (Left lower extremity with 2 to 3+ edema. Erythema and warmth present but in a minor degree.) Skin: normal color, warm/dry, No rash Neuro/Psych: alert, normal mood/affect, oriented x 3 ICD10 Worksheet Patient Problems: Problems Problem Status Onset Cellulitis Acute Paraplegia Acute Severe sepsis with acute organ dysfunction Acute C. difficile diarrhea Acute 09/21/16
[2017-01-31] MEDS: WARFARIN SODIUM 5 MG TAB PO SCH (16:40)
--- NOTE | 2017-01-31 20:27 | HOSPPROG ---
Hospitalist Progress Note Assessment/Plan: DIAGNOSES: -complicated urinary tract infection / multiple organisms with some resistance / see a UTI present on admission -Cellulitis with negative blood cultures, infection of the leg -Advanced multiple sclerosis PLANS: - I reviewed the case in detail today with Dr. Jeffery Giles who recommends 1-2 more days of IV antibiotics in the hospital this time -Will continue current antibiotics -Continue current wound care -Will set up home care for outpatient wound care as he leaves the hospital SUBJECTIVE: States he feels much better pretty much back to baseline No pain No fever symptoms Strength better Eating well Hoping to go home OBJECTIVE Vitals reviewed: stable without fever Exam: alert oriented skin warm dry color ok resps not labored lungs clear BSs heart regular abd soft nondistended nontender, bowel sounds present limbs warm, no edema iv site ok Objective: Vital Signs Temp Pulse Resp BP Pulse Ox 36.6 C 81 16 99/58 L 96 01/31/17 17:45 01/31/17 17:45 01/31/17 17:45 01/31/17 17:45 01/31/17 17:45 Laboratory Results 01/31/17 04:35 01/30/17 04:16 01/30/17 01/31/17 02/01/17 06:59 06:59 06:59 Intake Total 1000 1000 Output Total 6950 2900 550 Balance -5950 -2900 450 PT 15.5 SEC (12.0-15.0) H 01/31/17 04:35 INR 1.23 (0.83-1.16) H 01/31/17 04:35 ICD10 Worksheet Patient Problems: Problems Problem Status Onset Cellulitis Acute Paraplegia Acute Severe sepsis with acute organ dysfunction Acute C. difficile diarrhea Acute 09/21/16
[2017-02-01] MEDS: fentaNYL 75 MCG PATCH TD SCH (06:07)
[2017-02-01] MEDS: METHENAMINE MANDELATE 1 GM PO SCH ×2 (06:23→12:55)
[2017-02-01 08:02] VITALS: BP 127/73; PULSE 70; RESP 18; TEMP 97.9; O2SAT 94
[2017-02-01] MEDS: cefTRIAXone 2 GM in D5W 50 ML IV SCH (08:20)
[2017-02-01] MEDS: ENOXAPARIN 100 MG/ML SYR SC SCH (08:23)
[2017-02-01] MEDS: VANCOMYCIN 125 MG/2.5 ML UDL PO SCH (08:25)
[2017-02-01] MEDS: PREGABALIN 100 MG CAP PO SCH (08:26)
[2017-02-01] MEDS: DULoxetine 60 MG CAP PO SCH (08:26)
[2017-02-01] MEDS: buPROPion XL 150 MG TAB PO SCH (08:26)
[2017-02-01] MEDS: OXYBUTYNIN CHLORIDE 5 MG TAB PO SCH (08:26)
--- NOTE | 2017-02-01 10:55 | PCMIDPN ---
Assessment/Plan: Assessment/Plan: 1. LLE cellulitis with multiple wounds: - erythema mostly concentrated around wounds. Only patchy faint erythema on the left leg otherwise. -Ongoing swelling of LLE. Needs to continue elevating LLE. - Currently on Ceftriaxone. -Can likely transition to oral keflex 500mg q6 x 10 days. -He needs f/u at wound care center - care coordinated with Dr. Hensley. 2. Positive urine cx: - true vs colonization. - he has recieved 7 days of atbx for this in any case. (zosyn + ceftriaxone) - CX with citrobacter,kleb. -no further treatment warranted. 3. Hx of recurrent c. diff - currently on oral vanco suppressive dosing. he should stay on this for the duration of being on keflex and then for at least 7 days after last dose of keflex. Meds ceftriaxone. Subjective: Afebrile. he would like to go home today if possible. Denies sob or diarrhea. LLE swelling still present. Objective: Vital Signs Temp Pulse Resp BP Pulse Ox 36.6 C 70 18 127/73 H 94 02/01/17 08:00 02/01/17 08:00 02/01/17 08:00 02/01/17 08:00 02/01/17 08:00 Laboratory Results 01/31/17 04:35 01/30/17 04:16 01/31/17 02/01/17 02/02/17 05:59 05:59 05:59 Intake Total 1500 Output Total 2900 2075 Balance -2900 -575 - Physical Exam General Appearance: alert, no apparent distress Respiratory: lungs clear Cardiac/Chest: regular rate, rhythm Extremities: swelling (LLE) Abdomen: normal bowel sounds, non-tender, soft, No distended Skin: erythema (mild patchy in LLE. multiple wounds noted on mostly lateral Left leg and heel. each of the wounds have surrounding erythema noted. wounds have hydrafera blue present. one wound which is superficial has some weeping. ) ICD10 Worksheet Patient Problems: Problems Problem Status Onset Cellulitis Acute Paraplegia Acute Severe sepsis with acute organ dysfunction Acute C. difficile diarrhea Acute 09/21/16
--- NOTE | 2017-02-01 13:41 | PDIAF ---
- Diagnosis Diagnosis: cellulitis of left leg; open ulcers of left leg; multiple sclerosis Code Status: Full Code - Medication Management Discharge Medications: Medications to Continue on Transfer Bupropion HCl [Bupropion Xl] 150 mg PO BID 01/26/17 [Last Taken 01/26/17] Duloxetine HCl 60 mg PO BID 01/26/17 [Last Taken 01/26/17] FENTANYL 75 mcg TP Q48H 01/26/17 [Last Taken 01/26/17 12:00] Hydrocodone/Acetaminophen [Hydrocodon-Acetaminophen 5-325] 1 each PO QID PRN [Last Taken Unknown] Methenamine Mandelate [METHENAMINE MANDELATE] 1 g PO QID 01/26/17 [Last Taken ] Oxybutynin Chloride 5 mg PO BID 01/26/17 [Last Taken Unknown] PREGABALIN [LYRICA] 100 mg PO BID 01/26/17 [Last Taken 01/26/17] Apixaban [Eliquis] 5 mg PO BID #60 tab 02/01/17 [Last Taken Unknown] Cephalexin [Keflex (*)] 500 mg PO QID #28 cap 02/01/17 [Last Taken Unknown] Vancomycin [Vancocin Oral Liquid] 125 mg PO BID #20 udl 02/01/17 [Last Taken Unknown] Discharge Medications: Refer to the Discharge Home Medication list for PRN reason. PICC Care - Routine: N/A - Orders Services needed: Home Care, Registered Nurse Home Care Face to Face: I certify that this patient was under my care and that I had the required [id number] encounter meeting the encounter requirements on the discharge day. My findings support the fact that the patient is homebound as defined in CMS Chapter 7 Medicare Benefits Manual 30.1.1, The condition of the patient is such that there exists a normal inability to leave home and consequently, leaving home would require a considerable and taxing effort. Diet Recommendation: no restrictions on diet Diet Texture: Regular Texture Diet Wound Care Instructions: Dressing change orders for LLE (3 wounds:lower medial leg, dorsal foot, and heel) to be done by fabric worker fitter q2 days and PRN. 1) cleanse w/ normal saline and gauze. 2) apply skin prep to pradeep-wound skin. 3) tear of piece of Aline Promogran Ag and place into wound bed. 4) cut Hydrofera Blue Ready to fit in wound bed, writing side facing up. 4) secure w/ steri-strips. 5) cover w/ Allevyn Life dressings. Elevate LLE on pillow, floating heel on pillow. Additional: Contact Dr Nagy for concerns about wounds. Follow up at [facility] in one week to reassess infection and wounds - Follow Up Care
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
== END 2017-02-01 17:16 | disposition home health service (06) | DRG 872 ==
LOC: F3E 18:19
PROVIDERS: ADMIT Internal Medicine; ATTEND Internal Medicine
DX: A41.89 Other specified sepsis (principal); R65.20 Severe sepsis without septic shock; L03.116 Cellulitis of left lower limb; T83.511A Infection and inflammatory reaction due to indwelling urethral catheter, initial encounter; N39.0 Urinary tract infection, site not specified; B96.1 Klebsiella pneumoniae [K. pneumoniae] as the cause of diseases classified elsewhere; I95.9 Hypotension, unspecified; S14.2 Injury of nerve root of cervical spine; G82.20 Paraplegia, unspecified; N31.9 Neuromuscular dysfunction of bladder, unspecified; D69.6 Thrombocytopenia, unspecified; I82.4Z9 Acute embolism and thrombosis of unspecified deep veins of unspecified distal lower extremity; K21.9 Gastro-esophageal reflux disease without esophagitis; R10.31 Right lower quadrant pain; Z96.0 Presence of urogenital implants; Z87.440 Personal history of urinary (tract) infections
CPT/HCPCS: 96365; J0696; J1170; J1335; J1650; J1885; J2543; J3370; J3475

== ENCOUNTER 2017-06-17 09:17 | Inpatient (IN) | payer OTHER ==
[~2017-06-17 09:17] MED LIST: ceFAZolin 2 GM/DEXTROSE 100 ML IV ONE; ceFAZolin 2 GM/SWFI 2 GM/20 ML SYR IVP ONE
[2017-06-17] MEDS ORDERED: LR 1,000 ML IV ONE (09:22)
[2017-06-17] MEDS ORDERED: LIDOCAINE 1% 2 ML INJ ID PRN (09:22)
[2017-06-17] MEDS ORDERED: MIDAZOLAM 2 MG/2 ML VIAL IVP ONE (09:35)
--- NOTE | 2017-06-17 09:35 | PDANEPAE ---
ANE History of Present Illness L BKA ANE Past Medical History Past Medical History: C6-7 paraplegia - Cardiovascular History Hx Hypertension: No Hx Arrhythmias: No Hx Chest Pain: No Hx Coronary Artery / Peripheral Vascular Disease: No Hx CHF / Valvular Disease: No Hx Palpitations: No - Pulmonary History Hx COPD: No Hx Asthma/Reactive Airway Disease: No Hx Recent Upper Respiratory Infection: No Hx Oxygen in Use at Home: No Hx Sleep Apnea: No Sleep Apnea Screening Result - Last Documented: Negative - Neurologic History Hx Cerebrovascular Accident: No Hx Seizures: No Hx Dementia: No Neurologic History Comment: PARAPLEGIA. NEUROPATHIC PAIN - Endocrine History Hx Diabetes: No - Renal History Hx Renal Disorders: Yes Renal History Comment: SUPRAPUBIC CATH - Liver History Hx Hepatic Disorders: No - Neurological & Psychiatric Hx Hx Neurological and Psychiatric Disorders: Yes Neurological / Psychiatric History Comment: MILD DEPRESSION - Cancer History Hx Cancer: No - Congenital Disorder History Hx Congenital Disorders: No - GI History Hx Gastrointestinal Disorders: Yes Gastrointestinal History Comment: REFLUX - Other Health History Other Health History: NON-HEALING ULCERS, apply moisture barrier to perineum,. DVT this year - Chronic Pain History Chronic Pain: Yes (NEUROPATHIC PAIN) - Surgical History Prior Surgeries: HX OF 20-30 SURGERIES. MOST RECENT TENDON TRANSFER RIGHT ARM. TARIQ HOPKINS Review of Systems Review of Systems: - Exercise capacity Exercise capacity: limited by disability METS (RN): 1 METS ANE Patient History - Allergies Allergies/Adverse Reactions: No Known Allergies Allergy (Unverified 10/28/09 13:43) - Home Medications Home medications: home medication list seen and reviewed Home Medications: Bupropion HCl [Bupropion Xl] 150 mg PO BID 01/26/17 [Last Taken 01/26/17] Oxybutynin Chloride 5 mg PO BID 01/26/17 [Last Taken Unknown] PREGABALIN [LYRICA] 100 mg PO BID 01/26/17 [Last Taken 01/26/17] DULoxetine [Cymbalta 60 MG (*)] 60 mg PO BID 06/16/17 [Last Taken Unknown] - NPO status NPO Status: no food or drink >8 hours - Anes Hx Anes Hx: no prior problems - Smoking Hx Smoking Status: Never smoked - Family Anes Hx Family Anes Hx: none Family Hx Anesthesia Complications: NONE ANE Labs/Vital Signs - Vital Signs Height: 198.12 cm Weight: 86.183 kg ANE Physical Exam - Airway Neck exam: FROM Mallampati Score: Class 1 Mouth exam: normal dental/mouth exam - Pulmonary Pulmonary: no respiratory distress - Cardiovascular Cardiovascular: regular rate and rhythym - ASA Status ASA Status: II ANE Anesthesia Plan Anesthesia Plan: MAC, spinal
--- NOTE | 2017-06-17 09:46 | PDHPUP ---
History & Physical Update H&P update statement: This history and physical update is based on an assessment of the patient which was completed after admission or registration (within 24 hours), but prior to the surgery/procedure. H&P update: H&P reviewed & patient examined, no change in patient's condition since H&P completed
[2017-06-17] MEDS ORDERED: BUPIVACAINE 0.5% 30 ML SDV ONE (09:49)
[2017-06-17] MEDS ORDERED: LIDOCAINE 2% 100 MG/5 ML SYR ONE (10:17)
[2017-06-17] MEDS ORDERED: PROPOFOL/EMULSION 500 MG/50 ML BOTTLE IV ONE (10:17)
[2017-06-17] MEDS ORDERED: PHENYLEPHRINE HCL 100 MCG/ML SYR ONE (10:54)
[2017-06-17] MEDS ORDERED: PHENYLEPHRINE 10 MG/ML SDV ONE (11:25)
[2017-06-17] MEDS ORDERED: OXYCODONE/APAP 5/325 TAB PO PRN (12:41)
[2017-06-17] MEDS ORDERED: DEXAMETHASONE 4 MG/ML VIAL IVP PRN (12:41)
[2017-06-17] MEDS ORDERED: HYDROmorphONE/DILAUDID 1 MG/ML INJ IVP PRN (12:41)
[2017-06-17] MEDS ORDERED: ONDANSETRON 4 MG/2 ML VIAL IVP PRN ×2 (12:41→13:24)
[2017-06-17] MEDS ORDERED: ACETAMINOPHEN 500 MG TAB PO PRN (12:41)
[2017-06-17] MEDS ORDERED: fentaNYL 100 MCG/2 ML INJ IVP PRN (12:41)
[2017-06-17] MEDS ORDERED: NALOXONE HCL 0.4 MG/ML INJ IVP PRN (12:41)
--- NOTE | 2017-06-17 12:41 | POSTANESTH ---
Post Anesthetic Evaluation Cardiovascular Status: Tx Hyper/Hypo-tension, Tx Over/Under Hydration (treating hypovolemia, anemia) Respiratory Status: Similar to Pre-op Cond. Level of Consciousness/Mental Status: Can Participate in Eval, Mildly Sleepy, Arousable Pain Control: Adequate, Prn Tx Ordered Nausea/Vomiting Control: Adequate, Prn Tx Ordered Complications Possibly Related to Anesthesia: None Noted
[2017-06-17] MEDS ORDERED: PROPOFOL 200 MG/20 ML VIAL ONE (13:04)
--- NOTE | 2017-06-17 13:23 | POSTOPPROG ---
Post Op Note Date of Operation: 06/17/17 Surgeon: Hue Nagy [employer] Sales Representative: tom Anesthesiologist: sully Anesthesia: IV Sedation, Spinal Pre-op Diagnosis: LLE chronic ulcers Post-op Diagnosis: same Indication: 46yo M with chronic LLE ulcers with recurring cellulitis Procedure: L BKA Findings: none unusual Inf/Abcess present in the surg proc area at time of surgery?: No Depth: Organ Space EBL: 500-1000 Drains: Wound Vac (incisional wound vac)
[2017-06-17] MEDS ORDERED: ACETAMINOPHEN 325 MG TAB PO PRN (13:24)
[2017-06-17] MEDS ORDERED: diphenhydrAMINE 25 MG CAP PO PRN (13:24)
[2017-06-17] MEDS ORDERED: ONDANSETRON DISINTEGRATING 4 MG TAB PO PRN (13:24)
[2017-06-17] MEDS ORDERED: PHENYLEPHRINE HCL 100 MCG/ML SYR IVP PRN ×2 (13:41→13:50)
[2017-06-17] MEDS: PHENYLEPHRINE HCL 100 MCG/ML SYR IVP PRN ×5 (13:45→14:20)
--- NOTE | 2017-06-17 13:47 | WOCRNPDOC ---
WOCRN Advanced Assessment Note - Skin Integrity Problem, Advanced Assess Left Lower Residual Limb Dressing Type: Wound Vac (Incisional dressing) Skin Integrity Problem Comment: Patient has incisional wound vac dressing over L BKA site. Per Dr. Nagy, this dressing does not need to be changed for 1 week , at which point she will assess. If there is an issue with the dressing or a dressing change is required, please notify Dr. Nagy, GREGORY Hoang, or on- call surgeon.
[2017-06-17] MEDS ORDERED: ALBUMIN 5% 250 ML BOTTLE IV ONE ×2 (14:04→14:31)
[2017-06-17] MEDS: PREGABALIN 50 MG CAP PO SCH (20:38)
[2017-06-17] MEDS: OXYBUTYNIN CHLORIDE 5 MG TAB PO SCH (20:38)
[2017-06-17] MEDS: DULoxetine 60 MG CAP PO SCH (20:38)
[2017-06-17] MEDS: buPROPion XL 150 MG TAB PO SCH (20:38)
[2017-06-17] MEDS: OXYCODONE/APAP 5/325 TAB PO PRN (21:50)
[2017-06-17] MEDS: HYDROmorphONE/DILAUDID 1 MG/ML INJ IVP PRN (21:50)
--- NOTE | 2017-06-17 23:59 | GOP ---
[f rep st] OPERATIVE REPORT DATE OF OPERATION: 06/17/2017 SURGEON: Hue Nagy MD COIN MACHINE COLLECTOR SUPERVISOR: CARMEN Hoang ANESTHESIA: General. ANESTHESIOLOGIST: Dr. Charlie Breaux. PREOPERATIVE DIAGNOSIS: Paraplegia with chronic nonhealing wounds on the left lower extremity. POSTOPERATIVE DIAGNOSIS: Paraplegia with chronic nonhealing wounds on the left lower extremity. PROCEDURE PERFORMED: Left [id number] amputation. FINDINGS: Diffuse bleeding. SPECIMENS: Left lower leg. ESTIMATED BLOOD LOSS: 1 L. INDICATIONS: The patient is a 46-year-old man with paraplegia whom I have known for quite some time. He has wounds on his left lower extremity. They had nearly healed and then broke open again. He has been admitted for sepsis. We have had discussions about doing flaps versus a [id number] amputation. At this time, the patient would like to undergo [id number] amputation. DESCRIPTION OF PROCEDURE: The patient was brought into the operating room and a spinal was performed, and monitored anesthesia care was given. The wounds were isolated, and then his leg was prepped and draped in the usual sterile fashion. Anterior and posterior skin flaps were outlined, making the jose approximately 10 cm distal to the tibial tuberosity with a longer flap posteriorly. I was a bit limited on my posterior flap due to the wounds. The skin incision was performed and deepened through the subcutaneous tissue until the muscular fascia was identified. All of his muscle was extremely pale, however, it all had excellent blood supply with several small tributaries. The greater and short saphenous veins on the medial and posterior aspects of the leg were ligated. The fascia muscles were then divided with electrocautery at the same level of the anterior skin incision. Again, the muscles had several small bleeders. Muscles in the anterior and lateral compartment were divided. The anterior tibial vessels were exposed and were ligated and divided. The interosseous membrane was incised. The tibial periosteum was incised circumferentially with electrocautery. Using a periosteal elevator, the tibial periosteum was stripped proximally. The tibia was transected with a saw approximately 2 cm proximal to the skin incision with an anterior bevel. The fibula was exposed, dissected and transected above that. The amputation was completed. The soleus was transected obliquely. Bleeding soleal veins and posterior tibial and peroneal vessels were clamped and oversewn with 2-0 Vicryl. I used a rasp to file bony prominences. I then brought up the muscle flap and sutured this with 2-0 Vicryl. I then brought up the skin and sutured this with 2-0 nylon. An incisional wound VAC was placed. Jhonathan bandage applied. He was taken to the PACU. In the PACU, he became more hypotensive. Hemoglobin and hematocrit were checked , hemoglobin was 7.8. I then transfused him 2 units of blood. I decided that I would rather have him be observed in the ICU overnight than on the floor. He responded well to transfusion. /[id number]/MODL MTDD
--- NOTE | 2017-06-17 23:59 | GOP ---
[f rep st] OPERATIVE REPORT DATE OF OPERATION: 06/17/2017 SURGEON: Hue Nagy MD GENERAL MANAGER FARM: CARMEN Hoang ANESTHESIA: General. ANESTHESIOLOGIST: Dr. Charlie Breaux. PREOPERATIVE DIAGNOSIS: Paraplegia with chronic nonhealing wounds on the left lower extremity. POSTOPERATIVE DIAGNOSIS: Paraplegia with chronic nonhealing wounds on the left lower extremity. PROCEDURE PERFORMED: Left hnnpr-ajl-yuqj amputation. FINDINGS: Diffuse bleeding. SPECIMENS: Left lower leg. ESTIMATED BLOOD LOSS: 1 L. INDICATIONS: The patient is a 46-year-old man with paraplegia whom I have known for quite some time. He has wounds on his left lower extremity. They had nearly healed and then broke open again. He has been admitted for sepsis. We have had discussions about doing flaps versus a sbpkg-kxk-khfk amputation. At this time, the patient would like to undergo rvrlj-yad-okoq amputation. DESCRIPTION OF PROCEDURE: The patient was brought into the operating room and a spinal was performed, and monitored anesthesia care was given. The wounds were isolated, and then his leg was prepped and draped in the usual sterile fashion. Anterior and posterior skin flaps were outlined, making the jose approximately 10 cm distal to the tibial tuberosity with a longer flap posteriorly. I was a bit limited on my posterior flap due to the wounds. The skin incision was performed and deepened through the subcutaneous tissue until the muscular fascia was identified. All of his muscle was extremely pale, however, it all had excellent blood supply with several small tributaries. The greater and short saphenous veins on the medial and posterior aspects of the leg were ligated. The fascia muscles were then divided with electrocautery at the same level of the anterior skin incision. Again, the muscles had several small bleeders. Muscles in the anterior and lateral compartment were divided. The anterior tibial vessels were exposed and were ligated and divided. The interosseous membrane was incised. The tibial periosteum was incised circumferentially with electrocautery. Using a periosteal elevator, the tibial periosteum was stripped proximally. The tibia was transected with a saw approximately 2 cm proximal to the skin incision with an anterior bevel. The fibula was exposed, dissected and transected above that. The amputation was completed. The soleus was transected obliquely. Bleeding soleal veins and posterior tibial and peroneal vessels were clamped and oversewn with 2-0 Vicryl. I used a rasp to file bony prominences. I then brought up the muscle flap and sutured this with 2-0 Vicryl. I then brought up the skin and sutured this with 2-0 nylon. An incisional wound VAC was placed. Jhonathan bandage applied. He was taken to the PACU. In the PACU, he became more hypotensive. Hemoglobin and hematocrit were checked , hemoglobin was 7.8. I then transfused him 2 units of blood. I decided that I would rather have him be observed in the ICU overnight than on the floor. He responded well to transfusion. /[id number]/MODL MTDD
--- NOTE | 2017-06-17 23:59 | GOP ---
[f rep st] OPERATIVE REPORT DATE OF OPERATION: 06/17/2017 SURGEON: Hue Nagy MD PAIRING MACHINE OPERATOR: CARMEN Hoang ANESTHESIA: General. ANESTHESIOLOGIST: Dr. Charlie Breaux. PREOPERATIVE DIAGNOSIS: Paraplegia with chronic nonhealing wounds on the left lower extremity. POSTOPERATIVE DIAGNOSIS: Paraplegia with chronic nonhealing wounds on the left lower extremity. PROCEDURE PERFORMED: Left onxqo-csh-kyut amputation. FINDINGS: Diffuse bleeding. SPECIMENS: Left lower leg. ESTIMATED BLOOD LOSS: 1 L. INDICATIONS: The patient is a 46-year-old man with paraplegia whom I have known for quite some time. He has wounds on his left lower extremity. They had nearly healed and then broke open again. He has been admitted for sepsis. We have had discussions about doing flaps versus a pqcgo-sox-dudo amputation. At this time, the patient would like to undergo iexem-dqf-bxon amputation. DESCRIPTION OF PROCEDURE: The patient was brought into the operating room and a spinal was performed, and monitored anesthesia care was given. The wounds were isolated, and then his leg was prepped and draped in the usual sterile fashion. Anterior and posterior skin flaps were outlined, making the jose approximately 10 cm distal to the tibial tuberosity with a longer flap posteriorly. I was a bit limited on my posterior flap due to the wounds. The skin incision was performed and deepened through the subcutaneous tissue until the muscular fascia was identified. All of his muscle was extremely pale, however, it all had excellent blood supply with several small tributaries. The greater and short saphenous veins on the medial and posterior aspects of the leg were ligated. The fascia muscles were then divided with electrocautery at the same level of the anterior skin incision. Again, the muscles had several small bleeders. Muscles in the anterior and lateral compartment were divided. The anterior tibial vessels were exposed and were ligated and divided. The interosseous membrane was incised. The tibial periosteum was incised circumferentially with electrocautery. Using a periosteal elevator, the tibial periosteum was stripped proximally. The tibia was transected with a saw approximately 2 cm proximal to the skin incision with an anterior bevel. The fibula was exposed, dissected and transected above that. The amputation was completed. The soleus was transected obliquely. Bleeding soleal veins and posterior tibial and peroneal vessels were clamped and oversewn with 2-0 Vicryl. I used a rasp to file bony prominences. I then brought up the muscle flap and sutured this with 2-0 Vicryl. I then brought up the skin and sutured this with 2-0 nylon. An incisional wound VAC was placed. Jhonathan bandage applied. He was taken to the PACU. In the PACU, he became more hypotensive. Hemoglobin and hematocrit were checked , hemoglobin was 7.8. I then transfused him 2 units of blood. I decided that I would rather have him be observed in the ICU overnight than on the floor. He responded well to transfusion. /[id number]/MODL MTDD
[2017-06-18] MEDS ORDERED: NS BOLUS 500 ML (Wide open) IV ONE ×2 (01:00→23:30)
[2017-06-18] MEDS ORDERED: ALBUMIN 5% 500 ML IV ONE (01:00)
[2017-06-18] MEDS: HYDROmorphONE/DILAUDID 1 MG/ML INJ IVP PRN ×3 (04:49→18:30)
[2017-06-18] MEDS: OXYCODONE/APAP 5/325 TAB PO PRN ×3 (04:50→18:30)
[2017-06-18] MEDS: buPROPion XL 150 MG TAB PO SCH ×2 (08:54→21:54)
[2017-06-18] MEDS: PREGABALIN 50 MG CAP PO SCH ×2 (08:54→21:54)
[2017-06-18] MEDS: OXYBUTYNIN CHLORIDE 5 MG TAB PO SCH ×2 (08:54→21:55)
[2017-06-18] MEDS: DULoxetine 60 MG CAP PO SCH ×2 (08:54→21:55)
--- NOTE | 2017-06-18 09:09 | SOAPPROG ---
SOAP Progress Note Assessment/Plan: Assessment/Plan: - 46-year-old male status post left below-knee amputation Neuro: Patient denies having any pain in that left lower extremity as he is paraplegic. Remainder of examination nonfocal Pulm: Stable on room air CV: Was hypertensive into the 80s overnight, and tachycardic which appears to be improved this morning as a systolic is in the 100s and his heart rate is in the 80s. Abdomen: Soft nondistended nontender. Regular diet Renal: Voiding Heme: Acute blood loss anemia, hemoglobin less than 7 again this morning. Received 2 packed cells yesterday, will give another 2 this morning. Recheck this afternoon Id: Cultures pending, not currently on any antibiotics. Has a history of C diff. Contact precautions Ortho: Stump site is clean dry and intact with VAC in place, I do not feel as though he is continuing to bleed Dispo: ICU until his hemoglobin normalizes anticipate that his blood pressure and heart rate will respond as his hemoglobin rises. 06/18/17 09:07 Subjective: No complaints Objective: Vital Signs Temp Pulse Resp BP Pulse Ox 36.5 C 86 16 105/58 L 96 06/18/17 08:00 06/18/17 08:00 06/18/17 08:00 06/18/17 08:00 06/18/17 08:00 Laboratory Results 06/18/17 06:20 06/17/17 06/18/17 06/19/17 05:59 05:59 05:59 Intake Total 4100 Output Total 3800 Balance 300 ICD10 Worksheet Patient Problems: Problems Problem Status Onset C. difficile diarrhea Acute 09/21/16 Cellulitis Acute Paraplegia Acute Severe sepsis with acute organ dysfunction Acute
[2017-06-18] MEDS ORDERED: MAGNESIUM HYDROXIDE 30 ML UDCUP PO PRN (23:11)
[2017-06-18] MEDS ORDERED: POLYETHYLENE GLYCOL 3350 17 GM PKT PO PRN (23:11)
[2017-06-18] MEDS ORDERED: BISACODYL 10 MG SUPP PR PRN (23:11)
[2017-06-18] MEDS ORDERED: LACTULOSE 20 GM/30 ML UDCUP PO PRN (23:11)
[2017-06-19] MEDS: OXYCODONE/APAP 5/325 TAB PO PRN ×3 (01:27→17:43)
[2017-06-19] MEDS: SENNOSIDES/DOCUSATE SODIUM TAB PO SCH ×3 (02:05→20:10)
[2017-06-19] MEDS: HYDROmorphONE/DILAUDID 1 MG/ML INJ IVP PRN ×4 (04:14→22:19)
[2017-06-19] MEDS: PREGABALIN 50 MG CAP PO SCH ×2 (08:06→20:10)
[2017-06-19] MEDS: OXYBUTYNIN CHLORIDE 5 MG TAB PO SCH ×2 (08:06→20:10)
[2017-06-19] MEDS: buPROPion XL 150 MG TAB PO SCH ×2 (08:06→20:10)
[2017-06-19] MEDS: DULoxetine 60 MG CAP PO SCH ×2 (08:06→20:10)
--- NOTE | 2017-06-19 09:07 | SOAPPROG ---
SOAP Progress Note Assessment/Plan: Assessment/Plan: - 46-year-old male status post left below-knee amputation Hb stable, vitals have also been stable but did have one low pressure overnight into the 80s, remains asymptomatic. - OOBTC, VAC, will chjange tomorrow. - No other changes 06/18/17 09:07 06/19/17 09:06 Subjective: JAMES overnight, otherwise no complaints Objective: Vital Signs Temp Pulse Resp BP Pulse Ox 37.1 C 107 H 16 108/51 L 96 06/19/17 08:00 06/19/17 08:00 06/19/17 08:00 06/19/17 08:00 06/19/17 08:00 Laboratory Results 06/19/17 05:22 06/18/17 06/19/17 06/20/17 05:59 05:59 05:59 Intake Total 4100 4388 Output Total 3800 7500 Balance 300 -3112 ICD10 Worksheet Patient Problems: Problems Problem Status Onset C. difficile diarrhea Acute 09/21/16 Cellulitis Acute Paraplegia Acute Severe sepsis with acute organ dysfunction Acute
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
[2017-06-20] MEDS: HYDROmorphONE/DILAUDID 1 MG/ML INJ IVP PRN ×3 (04:35→22:02)
[2017-06-20] MEDS: DULoxetine 60 MG CAP PO SCH ×2 (08:36→21:13)
[2017-06-20] MEDS: OXYBUTYNIN CHLORIDE 5 MG TAB PO SCH ×2 (08:36→21:13)
[2017-06-20] MEDS: PREGABALIN 50 MG CAP PO SCH ×2 (08:36→21:13)
[2017-06-20] MEDS: buPROPion XL 150 MG TAB PO SCH ×2 (08:36→21:13)
--- NOTE | 2017-06-20 10:01 | SOAPPROG ---
SOAP Progress Note Assessment/Plan: Assessment: 46yo M paraplegia POD#3 s/p left BKA No pain CV stable ABLA - s/p 4u PRBCs. recheck H/H Path pending Incisional vac to suction Calenderer to fit for stump protector Dispo - likely home tomorrow. working on getting him an incisional vac for home. D/w Dr. Stout S: feeling well. no dizziness, lightheadedness. no pain. got up to side of bed yesterday O: Bed, comfortable, no acute distress No increased work of breathing Regular rate and rhythm Left lower extremity BKA, incisional wound VAC to suction. No surrounding erythema. 06/21/17 11:44 Objective: Vital Signs Temp Pulse Resp BP Pulse Ox 36.8 C 98 16 110/63 93 06/20/17 08:00 06/20/17 08:00 06/20/17 08:00 06/20/17 08:00 06/20/17 08:00 Laboratory Results 06/19/17 05:22 06/19/17 06/20/17 06/21/17 05:59 05:59 05:59 Intake Total 4388 1050 Output Total 3926 3244 Balance -9558 -1007 ICD10 Worksheet Patient Problems: Problems Problem Status Onset C. difficile diarrhea Acute 09/21/16 Cellulitis Acute Paraplegia Acute Severe sepsis with acute organ dysfunction Acute
--- NOTE | 2017-06-20 10:01 | SOAPPROG ---
SOAP Progress Note Assessment/Plan: Assessment: 46yo M paraplegia POD#3 s/p left BKA No pain CV stable ABLA - s/p 4u PRBCs. recheck H/H Path pending Incisional vac to suction Tong Hooker to fit for stump protector Dispo - likely home tomorrow. working on getting him an incisional vac for home. D/w Dr. Stout S: feeling well. no dizziness, lightheadedness. no pain. got up to side of bed yesterday O: Bed, comfortable, no acute distress No increased work of breathing Regular rate and rhythm Left lower extremity BKA, incisional wound VAC to suction. No surrounding erythema. 06/21/17 11:44 Objective: Vital Signs Temp Pulse Resp BP Pulse Ox 36.8 C 98 16 110/63 93 06/20/17 08:00 06/20/17 08:00 06/20/17 08:00 06/20/17 08:00 06/20/17 08:00 Laboratory Results 06/19/17 05:22 06/19/17 06/20/17 06/21/17 05:59 05:59 05:59 Intake Total 4388 1050 Output Total 9004 7223 Balance -1360 -8547 ICD10 Worksheet Patient Problems: Problems Problem Status Onset C. difficile diarrhea Acute 09/21/16 Cellulitis Acute Paraplegia Acute Severe sepsis with acute organ dysfunction Acute
--- NOTE | 2017-06-20 10:01 | SOAPPROG ---
SOAP Progress Note Assessment/Plan: Assessment: 46yo M paraplegia POD#3 s/p left BKA No pain CV stable ABLA - s/p 4u PRBCs. recheck H/H Path pending Incisional vac to suction Accounts Payable Or Receivable Clerk to fit for stump protector Dispo - likely home tomorrow. working on getting him an incisional vac for home. D/w Dr. Stout S: feeling well. no dizziness, lightheadedness. no pain. got up to side of bed yesterday O: Bed, comfortable, no acute distress No increased work of breathing Regular rate and rhythm Left lower extremity BKA, incisional wound VAC to suction. No surrounding erythema. 06/21/17 11:44 Objective: Vital Signs Temp Pulse Resp BP Pulse Ox 36.8 C 98 16 110/63 93 06/20/17 08:00 06/20/17 08:00 06/20/17 08:00 06/20/17 08:00 06/20/17 08:00 Laboratory Results 06/19/17 05:22 06/19/17 06/20/17 06/21/17 05:59 05:59 05:59 Intake Total 4388 1050 Output Total 0566 3637 Balance -9528 -9397 ICD10 Worksheet Patient Problems: Problems Problem Status Onset C. difficile diarrhea Acute 09/21/16 Cellulitis Acute Paraplegia Acute Severe sepsis with acute organ dysfunction Acute
[2017-06-20] MEDS: SENNOSIDES/DOCUSATE SODIUM TAB PO SCH ×2 (10:04→21:12)
[2017-06-20 11:14] LABS: PLATELET COUNT 211 10^3/uL (150-400)
--- NOTE | 2017-06-20 15:14 | ASMTCMCOM ---
CM Note CM Note Notes: CM met w/ pt for dispo planning. Pt will need a woud vac when he discharges. Pt is current w/ [facility]. CM notified [facility] that pt will most likely will be discharging tomorrow. Nara from case management will help w/ applying for wound vac through [facility]. CM to follow. Date Signed: 06/20/2017 03:13 PM Electronically Signed By:CARMELA iJ
--- NOTE | 2017-06-20 15:14 | ASMTCMCOM ---
CM Note CM Note Notes: CM met w/ pt for dispo planning. Pt will need a woud vac when he discharges. Pt is current w/ [facility]. CM notified [facility] that pt will most likely will be discharging tomorrow. Nara from case management will help w/ applying for wound vac through [facility]. CM to follow. Date Signed: 06/20/2017 03:13 PM Electronically Signed By:CARMELA Ji
--- NOTE | 2017-06-20 15:14 | ASMTCMCOM ---
CM Note CM Note Notes: CM met w/ pt for dispo planning. Pt will need a woud vac when he discharges. Pt is current w/ [facility]. CM notified [facility] that pt will most likely will be discharging tomorrow. Nara from case management will help w/ applying for wound vac through [facility]. CM to follow. Date Signed: 06/20/2017 03:13 PM Electronically Signed By:CARMELA Ji
[2017-06-20] MEDS: ENOXAPARIN 40 MG/0.4 ML SYR SC SCH (18:40)
[2017-06-21] MEDS: HYDROmorphONE/DILAUDID 1 MG/ML INJ IVP PRN ×2 (02:25→08:54)
[2017-06-21 08:00] VITALS: RESP 20
[2017-06-21] MEDS: SENNOSIDES/DOCUSATE SODIUM TAB PO SCH (08:37)
[2017-06-21] MEDS: OXYBUTYNIN CHLORIDE 5 MG TAB PO SCH (08:39)
[2017-06-21] MEDS: PREGABALIN 50 MG CAP PO SCH (08:39)
[2017-06-21] MEDS: ENOXAPARIN 40 MG/0.4 ML SYR SC SCH (08:40)
[2017-06-21] MEDS: buPROPion XL 150 MG TAB PO SCH (08:40)
[2017-06-21] MEDS: DULoxetine 60 MG CAP PO SCH (08:40)
[2017-06-21] MEDS ORDERED: BISACODYL 10 MG SUPP PR ONE (10:48)
[2017-06-21 11:05] VITALS: BP 75/52; PULSE 136; TEMP 97.9; O2SAT 97
--- NOTE | 2017-06-21 11:17 | PDIAF ---
- Diagnosis Diagnosis: LLE recurrent cellulitis, s/p BKA Code Status: Full Code - Medication Management Discharge Medications: Medications to Continue on Transfer Bupropion HCl [Bupropion Xl] 150 mg PO BID 01/26/17 [Last Taken 06/17/17] Oxybutynin Chloride 5 mg PO BID 01/26/17 [Last Taken 06/17/17] PREGABALIN [LYRICA] 100 mg PO BID 01/26/17 [Last Taken 06/17/17] DULoxetine [Cymbalta 60 MG (*)] 60 mg PO BID 06/16/17 [Last Taken 06/17/17] Discharge Medications: Refer to the Discharge Home Medication list for PRN reason. - Orders Services needed: Home Care, Registered Nurse, Physical Therapy, Occupational Therapy Home Care Face to Face: I certify that this patient was under my care and that I had the required qcxq-gw-nals encounter meeting the encounter requirements on the discharge day. My findings support the fact that the patient is homebound as defined in Home Care Face to Face Continued: CMS Chapter 7 Medicare Benefits Manual 30.1.1 , The condition of the patient is such that there exists a normal inability to leave home and consequently, leaving home would require a considerable and taxing effort. Diet Recommendation: no restrictions on diet Diet Texture: Regular Texture Diet Wound Care Instructions: please change LLE dressing (4x4, kelix, FOUZIA) PRN Sutures/Rajesh Site: sutures will remain in place until his visit with Dr. Nagy. - Follow Up Care Current Providers and Referrals: Luis Hernandez MD [Primary Care Provider] - Hue Nagy MD [Medical Doctor] -
--- NOTE | 2017-06-21 11:27 | ASMTCMCOM ---
CM Note CM Note Notes: CM spoke w/ GREGORY Ruffin regarding d/c POC. Pt is being discharged today w/out a wound vac. CM notified [facility] about pts discharge. CM faxed over d/c orders to [facility]. CM available for changes. Date Signed: 06/21/2017 11:27 AM Electronically Signed By:CARMELA Ji
--- NOTE | 2017-06-21 11:44 | SOAPPROG ---
SOAP Progress Note Assessment/Plan: Assessment: 46yo M paraplegia POD#4 s/p left BKA No pain Acute blood loss anemia - H/H improved. Path pending Incisional vac changed over to simple dressing. Unable to get wound vac approved for outpatient use. Stump protector when out of bed. Dispo - DC home today with group home counselor, PT and OT. D/w Dr. Stout S: feeling well. no pain. wants to go home today O: sitting upright in electric wheelchair, comfortable, no acute distress No increased work of breathing Left lower extremity BKA, incisional wound VAC removed and dressings placed. Incision CDI, sutures in place, no active drainage or surrounding erythema. 06/21/17 11:44 Objective: Vital Signs Temp Pulse Resp BP Pulse Ox 36.6 C 136 H 20 75/52 L 97 06/21/17 11:01 06/21/17 11:01 06/21/17 11:01 06/21/17 11:01 06/21/17 11:01 Laboratory Results 06/20/17 11:00 06/20/17 06/21/17 06/22/17 05:59 05:59 05:59 Intake Total 1050 2750 Output Total 0675 3250 700 Balance -3525 -500 -700 ICD10 Worksheet Patient Problems: Problems Problem Status Onset C. difficile diarrhea Acute 09/21/16 Cellulitis Acute Paraplegia Acute Severe sepsis with acute organ dysfunction Acute
--- NOTE | 2017-06-21 11:44 | SOAPPROG ---
SOAP Progress Note Assessment/Plan: Assessment: 46yo M paraplegia POD#4 s/p left BKA No pain Acute blood loss anemia - H/H improved. Path pending Incisional vac changed over to simple dressing. Unable to get wound vac approved for outpatient use. Stump protector when out of bed. Dispo - DC home today with home health aide caregiver, PT and OT. D/w Dr. Stout S: feeling well. no pain. wants to go home today O: sitting upright in electric wheelchair, comfortable, no acute distress No increased work of breathing Left lower extremity BKA, incisional wound VAC removed and dressings placed. Incision CDI, sutures in place, no active drainage or surrounding erythema. 06/21/17 11:44 Objective: Vital Signs Temp Pulse Resp BP Pulse Ox 36.6 C 136 H 20 75/52 L 97 06/21/17 11:01 06/21/17 11:01 06/21/17 11:01 06/21/17 11:01 06/21/17 11:01 Laboratory Results 06/20/17 11:00 06/20/17 06/21/17 06/22/17 05:59 05:59 05:59 Intake Total 1050 2750 Output Total 9995 3250 700 Balance -3525 -500 -700 ICD10 Worksheet Patient Problems: Problems Problem Status Onset C. difficile diarrhea Acute 09/21/16 Cellulitis Acute Paraplegia Acute Severe sepsis with acute organ dysfunction Acute
--- NOTE | 2017-06-21 11:44 | SOAPPROG ---
SOAP Progress Note Assessment/Plan: Assessment: 46yo M paraplegia POD#4 s/p left BKA No pain Acute blood loss anemia - H/H improved. Path pending Incisional vac changed over to simple dressing. Unable to get wound vac approved for outpatient use. Stump protector when out of bed. Dispo - DC home today with home improvement contractor, PT and OT. D/w Dr. Stout S: feeling well. no pain. wants to go home today O: sitting upright in electric wheelchair, comfortable, no acute distress No increased work of breathing Left lower extremity BKA, incisional wound VAC removed and dressings placed. Incision CDI, sutures in place, no active drainage or surrounding erythema. 06/21/17 11:44 Objective: Vital Signs Temp Pulse Resp BP Pulse Ox 36.6 C 136 H 20 75/52 L 97 06/21/17 11:01 06/21/17 11:01 06/21/17 11:01 06/21/17 11:01 06/21/17 11:01 Laboratory Results 06/20/17 11:00 06/20/17 06/21/17 06/22/17 05:59 05:59 05:59 Intake Total 1050 2750 Output Total 6455 3250 700 Balance -3525 -500 -700 ICD10 Worksheet Patient Problems: Problems Problem Status Onset C. difficile diarrhea Acute 09/21/16 Cellulitis Acute Paraplegia Acute Severe sepsis with acute organ dysfunction Acute
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
--- NOTE | 2017-06-24 10:32 | GDS ---
[f rep st] DISCHARGE SUMMARY ADMITTING DIAGNOSIS: Chronic left lower extremity with recurrent cellulitis. SECONDARY DIAGNOSES: 1. Paraplegia. 2. Acute blood-loss anemia, improved. REASON FOR ADMISSION: The patient is a 46-year-old man who has a long time history of chronic wounds of his left lower extremity. He has had recurrent issues with cellulitis and osteomyelitis. This t mary he desired [id number] amputation. He was admitted for surgical intervention, pain control, a nd observation. HOSPITAL COURSE: He was taken the operating room on 06/17/[address] Hue Nagy for a left below-t he-knee amputation. At the time of dictation, final pathology is still pending. Following surgery, he developed acute blood loss anemia and required transfusion on 06/17/2017 of 2 units, as well as of 2 units of PRBCs. His hemoglobin and hematocrit stabilized as expected. He did not have any pain postoperatively secondary to his paraplegia. He had an incisional wound VAC in place while he was an inpatient. However, this could not be authorized for outpatient use. [facility] He was fitted for a stump protector by [facility] prior to discharge. CONDITION: Being discharged home in stable condition with home health care. Pain is controlled. To lerating regular diet. He requires some assistance with transfer. DISCHARGE MEDICATIONS: No new medications. He was instructed to resume home medications. Please se e EMR for further detail, discharge instructions and followup. DISCHARGE INSTRUCTIONS AND FOLLOWUP: He will wear a stump protector when he is not in bed. He will continue to work with physical therapy and occupational therapy. Home care nurse will change his inc isional dressing daily or as needed home with 4x4s, Kerlix, and an Jhonathan wrap. He will return to the [facility] in 1 week for wound check and reevaluation. He will call in the meantime with any worsening sy mptoms, questions, or concerns. /[id number]/MODL
--- NOTE | 2017-06-24 10:32 | GDS ---
[f rep st] DISCHARGE SUMMARY ADMITTING DIAGNOSIS: Chronic left lower extremity with recurrent cellulitis. SECONDARY DIAGNOSES: 1. Paraplegia. 2. Acute blood-loss anemia, improved. REASON FOR ADMISSION: The patient is a 46-year-old man who has a long time history of chronic wounds of his left lower extremity. He has had recurrent issues with cellulitis and osteomyelitis. This t mary he desired [id number] amputation. He was admitted for surgical intervention, pain control, a nd observation. HOSPITAL COURSE: He was taken the operating room on 06/17/[address] Hue Nagy for a left below-t he-knee amputation. At the time of dictation, final pathology is still pending. Following surgery, he developed acute blood loss anemia and required transfusion on 06/17/2017 of 2 units, as well as of 2 units of PRBCs. His hemoglobin and hematocrit stabilized as expected. He did not have any pain postoperatively secondary to his paraplegia. He had an incisional wound VAC in place while he was an inpatient. However, this could not be authorized for outpatient use. [facility] He was fitted for a stump protector by [facility] prior to discharge. CONDITION: Being discharged home in stable condition with home health care. Pain is controlled. To lerating regular diet. He requires some assistance with transfer. DISCHARGE MEDICATIONS: No new medications. He was instructed to resume home medications. Please se e EMR for further detail, discharge instructions and followup. DISCHARGE INSTRUCTIONS AND FOLLOWUP: He will wear a stump protector when he is not in bed. He will continue to work with physical therapy and occupational therapy. Home care nurse will change his inc isional dressing daily or as needed home with 4x4s, Kerlix, and an Jhonathan wrap. He will return to the [facility] in 1 week for wound check and reevaluation. He will call in the meantime with any worsening sy mptoms, questions, or concerns. /[id number]/MODL
--- NOTE | 2017-06-24 10:32 | GDS ---
[f rep st] DISCHARGE SUMMARY ADMITTING DIAGNOSIS: Chronic left lower extremity with recurrent cellulitis. SECONDARY DIAGNOSES: 1. Paraplegia. 2. Acute blood-loss anemia, improved. REASON FOR ADMISSION: The patient is a 46-year-old man who has a long time history of chronic wounds of his left lower extremity. He has had recurrent issues with cellulitis and osteomyelitis. This t mary he desired [id number] amputation. He was admitted for surgical intervention, pain control, a nd observation. HOSPITAL COURSE: He was taken the operating room on 06/17/[address] Hue Nagy for a left below-t he-knee amputation. At the time of dictation, final pathology is still pending. Following surgery, he developed acute blood loss anemia and required transfusion on 06/17/2017 of 2 units, as well as of 2 units of PRBCs. His hemoglobin and hematocrit stabilized as expected. He did not have any pain postoperatively secondary to his paraplegia. He had an incisional wound VAC in place while he was an inpatient. However, this could not be authorized for outpatient use. [facility] He was fitted for a stump protector by [facility] prior to discharge. CONDITION: Being discharged home in stable condition with home health care. Pain is controlled. To lerating regular diet. He requires some assistance with transfer. DISCHARGE MEDICATIONS: No new medications. He was instructed to resume home medications. Please se e EMR for further detail, discharge instructions and followup. DISCHARGE INSTRUCTIONS AND FOLLOWUP: He will wear a stump protector when he is not in bed. He will continue to work with physical therapy and occupational therapy. Home care nurse will change his inc isional dressing daily or as needed home with 4x4s, Kerlix, and an Jhonathan wrap. He will return to the [facility] in 1 week for wound check and reevaluation. He will call in the meantime with any worsening sy mptoms, questions, or concerns. /[id number]/MODL
== END 2017-06-21 13:45 | disposition home health service (06) | DRG 475 ==
LOC: F3N 09:17 → F2N 15:58 → PREOBSVTOIN 16:29 → F2N 06-18 23:30 → F3E 06-19 11:53
PROVIDERS: ADMIT Surgery; ATTEND Surgery
PROC: 30233N1 Transfusion of Nonautologous Red Blood Cells into Peripheral Vein, Percutaneous Approach (ICD-10-PCS; principal; 2017-06-17 10:45)
PROC: 0Y6J0Z1 Detachment at Left Lower Leg, High, Open Approach (ICD-10-PCS; principal; 2017-06-17 10:45)
CPT/HCPCS: 97162-GP; 97166-GO; 97530-GO; 97530-GP; 97535-GO; J0690; J1170; J1200; J1650; J2001; J2250; J2370; J2704; P9016; P9041

== ENCOUNTER 2017-09-30 08:27 | Inpatient (IN) | payer OTHER ==
[~2017-09-30 08:27] MED LIST changes: -ceFAZolin 2 GM/DEXTROSE 100 ML IV ONE; -ceFAZolin 2 GM/SWFI 2 GM/20 ML SYR IVP ONE; +cefOXitin SODIUM 2 GM in STERILE WATER INJ 21 ML IV ONE
[2017-09-30] MEDS ORDERED: LR 1,000 ML IV ONE (08:56)
[2017-09-30] MEDS ORDERED: LIDOCAINE 1% 2 ML INJ ID PRN (08:56)
[2017-09-30] MEDS ORDERED: MIDAZOLAM 2 MG/2 ML VIAL IVP ONE (10:05)
--- NOTE | 2017-09-30 10:10 | PDANEPAE ---
ANE Past Medical History - Cardiovascular History Hx Hypertension: No Hx Arrhythmias: No Hx Chest Pain: No Hx Coronary Artery / Peripheral Vascular Disease: No Hx CHF / Valvular Disease: No Hx Palpitations: No - Pulmonary History Hx COPD: No Hx Asthma/Reactive Airway Disease: No Hx Recent Upper Respiratory Infection: No Hx Oxygen in Use at Home: No Hx Sleep Apnea: No Sleep Apnea Screening Result - Last Documented: Negative - Neurologic History Hx Cerebrovascular Accident: No Hx Seizures: No Hx Dementia: No Neurologic History Comment: PARAPLEGIA. NEUROPATHIC PAIN - Endocrine History Hx Diabetes: No Hypothyroid: No Hyperthyroid: No Obesity: no - Renal History Hx Renal Disorders: Yes Renal History Comment: SUPRAPUBIC CATH - Liver History Hx Hepatic Disorders: No - Neurological & Psychiatric Hx Hx Neurological and Psychiatric Disorders: Yes Neurological / Psychiatric History Comment: MILD DEPRESSION - Cancer History Hx Cancer: No - Congenital Disorder History Hx Congenital Disorders: No - GI History GERD: mild GERD Comment: 1-2 episodes/month Hx Gastrointestinal Disorders: Yes Gastrointestinal History Comment: Reflux, recurrent C-Diff - Other Health History Other Health History: NON-HEALING ULCERS, apply moisture barrier to perineum,. DVT this year in amputated leg. anemic - Chronic Pain History Chronic Pain: Yes (NEUROPATHIC PAIN) - Surgical History Prior Surgeries: HX OF 20-30 SURGERIES. MOST RECENT TENDON TRANSFER RIGHT ARM. TARIQ. left leg amputation. debridment of wound ANE Review of Systems Review of Systems: - Exercise capacity METS (RN): 1 METS ANE Patient History - Allergies Allergies/Adverse Reactions: No Known Allergies Allergy (Verified 09/29/17 14:08) - Home Medications Home Medications: Oxybutynin Chloride 5 mg PO BID 01/26/17 [Last Taken 09/29/17] DULoxetine [Cymbalta 60 MG (*)] 60 mg PO BID 06/16/17 [Last Taken 09/29/17] Dimethicone/Zinc Oxide [Tyrone Protect Cream] 1 skip TP BID 09/29/17 [Last Taken 07:00] Pregabalin [Lyrica 75mg (*)] 75 mg PO BID 09/29/17 [Last Taken 09/29/17] - Anes Hx Anes Hx: no prior problems - Smoking Hx Smoking Status: Never smoked - Family Anes Hx Family Anes Hx: neg - N/A Family Hx Anesthesia Complications: NONE ANE Labs/Vital Signs - Labs Result Diagrams: 09/30/17 09:15 09/30/17 09:15 - Vital Signs Height: 198.12 cm Weight: 81.647 kg ANE Physical Exam - Airway Neck exam: decreased ROM Mallampati Score: Class 1 Mouth exam: normal dental/mouth exam - Pulmonary Pulmonary: no respiratory distress, no rales or rhonchi, reduced air movement - Cardiovascular Cardiovascular: regular rate and rhythym, no murmur, rub, or gallop - ASA Status ASA Status: III ANE Anesthesia Plan Anesthesia Plan: general endotracheal anesthesia Total IV Anesthesia: No
[2017-09-30] MEDS ORDERED: REMIFENTANIL HCL 1 MG VIAL ONE (11:17)
[2017-09-30] MEDS ORDERED: PROPOFOL/EMULSION 500 MG/50 ML BOTTLE IV ONE ×2 (11:17→13:00)
[2017-09-30] MEDS ORDERED: fentaNYL 100 MCG/2 ML INJ ONE ×2 (11:17→14:12)
[2017-09-30] MEDS ORDERED: PROPOFOL 200 MG/20 ML VIAL ONE (11:17)
[2017-09-30] MEDS ORDERED: ONDANSETRON 4 MG/2 ML VIAL ONE (11:18)
[2017-09-30] MEDS ORDERED: ROCURONIUM 50 MG/5 ML VIAL ONE (11:18)
[2017-09-30] MEDS ORDERED: DEXAMETHASONE 4 MG/ML VIAL ONE (11:18)
[2017-09-30] MEDS ORDERED: LIDOCAINE 2% 5 ML SDV ONE (11:18)
[2017-09-30] MEDS ORDERED: BUPIVACAINE 0.5% 30 ML SDV ONE (11:48)
[2017-09-30] MEDS ORDERED: KETOROLAC 30 MG/1 ML SDV ONE (13:18)
--- NOTE | 2017-09-30 13:39 | POSTOPPROG ---
Post Op Note Date of Operation: 09/30/17 Surgeon: Hue Nagy Silo Man: tom Anesthesiologist: eduard Anesthesia: GET(General Endotracheal) Pre-op Diagnosis: paraplegia Post-op Diagnosis: same Indication: 46yo M with paraplegia, recurrent c diff who requires diverting colostomy Procedure: lap assist end colostomy Findings: none unusual Inf/Abcess present in the surg proc area at time of surgery?: No EBL: 50-100
[2017-09-30] MEDS ORDERED: ONDANSETRON DISINTEGRATING 4 MG TAB PO PRN (13:40)
[2017-09-30] MEDS ORDERED: diphenhydrAMINE 25 MG CAP PO PRN (13:40)
[2017-09-30] MEDS ORDERED: ONDANSETRON 4 MG/2 ML VIAL IVP PRN ×2 (13:40→13:48)
[2017-09-30] MEDS ORDERED: ACETAMINOPHEN 325 MG TAB PO PRN (13:40)
[2017-09-30] MEDS ORDERED: PROMETHAZINE HCL 25 MG/ML INJ IVP PRN (13:48)
[2017-09-30] MEDS ORDERED: HYDROmorphONE/DILAUDID 1 MG/ML INJ IVP PRN (13:48)
[2017-09-30] MEDS ORDERED: OXYCODONE/APAP 5/325 TAB PO PRN (13:48)
[2017-09-30] MEDS ORDERED: NALOXONE HCL 0.4 MG/ML INJ IVP PRN (13:48)
[2017-09-30] MEDS ORDERED: HYDROCODONE/APAP 5/325 TAB PO PRN (13:48)
[2017-09-30] MEDS ORDERED: MEPERIDINE 25 MG/ML SYR IVP PRN (13:48)
[2017-09-30] MEDS ORDERED: ACETAMINOPHEN 500 MG TAB PO PRN (13:48)
[2017-09-30] MEDS ORDERED: LR 500 ML IV PRN (13:48)
[2017-09-30] MEDS: fentaNYL 100 MCG/2 ML INJ IVP PRN ×2 (14:16→14:23)
[2017-09-30] MEDS ORDERED: HYDROmorphONE/DILAUDID 1 MG/ML INJ ONE (14:26)
--- NOTE | 2017-09-30 14:31 | POSTANESTH ---
Post Anesthetic Evaluation Cardiovascular Status: Normal, Stable Respiratory Status: Normal, Stable Level of Consciousness/Mental Status: Can Participate in Eval Pain Control: Adequate, Prn Tx Ordered Nausea/Vomiting Control: Adequate, Prn Tx Ordered Complications Possibly Related to Anesthesia: None Noted
[2017-09-30] MEDS: NS 1,000 ML IV SCH (15:51)
[2017-09-30] MEDS: PREGABALIN 75 MG CAP PO SCH (21:31)
[2017-09-30] MEDS: DULoxetine 60 MG CAP PO SCH (21:32)
[2017-09-30] MEDS: HYDROmorphONE/DILAUDID 1 MG/ML INJ IVP PRN (21:32)
[2017-09-30] MEDS: DIMETHICONE TP SCH (21:32)
[2017-09-30] MEDS: ZINC OXIDE TP SCH (21:32)
[2017-09-30] MEDS: OXYBUTYNIN CHLORIDE 5 MG TAB PO SCH (21:32)
[2017-10-01] MEDS: HYDROmorphONE/DILAUDID 1 MG/ML INJ IVP PRN ×3 (00:31→22:53)
[2017-10-01] MEDS: NS 1,000 ML IV SCH ×3 (01:26→22:53)
[2017-10-01 05:18] LABS: PLATELET COUNT 136 10^3/uL (150-400)
[2017-10-01] MEDS ORDERED: NS 1,000 ML IV ONE (06:30)
--- NOTE | 2017-10-01 07:39 | GOP ---
[f rep st] OPERATIVE REPORT DATE OF OPERATION: 09/30/2017 SURGEON: Hue Nagy MD PAINTER SIGN MAINTENANCE: Laly Ornelas, CARMEN ANESTHESIA: General. ANESTHESIOLOGIST: Dr. Salvatore Quiros. PREOPERATIVE DIAGNOSIS: Paraplegia with bowel dysfunction. POSTOPERATIVE DIAGNOSIS: Paraplegia with bowel dysfunction. PROCEDURE PERFORMED: Laparoscopic lysis of adhesion and laparoscopic end colostomy. FINDINGS: He had a dilated colon. SPECIMENS: None. ESTIMATED BLOOD LOSS: 20 cc. INDICATIONS: The patient is a 46-year-old man, well known to me. He recently underwent left [id number]-eyc-ydll amputation. He has a suprapubic catheter. He desires an ostomy to gain independence. DESCRIPTION OF PROCEDURE: The patient was brought into the operating room, placed supine on the table, and general anesthesia was administered. His abdomen was prepped and draped in the usual sterile fashion. I infiltrated all sites with 0.5% Marcaine prior to making incisions. I made an incision at his umbilicus. I inserted the Veress needle. It passed the hanging drop test. His abdomen insufflated easily to a pressure of 15 mmHg. I placed a 5 mm trocar at this site with a camera and could see that I was in an area of filmy adhesions. Under direct vision I placed a 10 mm suprapubic trocar. I had to perform adhesiolysis in order to place the 5 mm trocar in the right lower quadrant. I had to further continue adhesiolysis including using Endo Fanw to remove a loop of bowel from the anterior abdominal wall to clear away so that there was good visualization for his ostomy. The patient had an extremely redundant colon. I performed further adhesiolysis in the pelvis so that this would reach up easily to the abdominal wall. I divided along the white line of Toldt. I selected a point of transection at his rectum and used an Endo SVETLANA 60 two loads to transect the rectum. I brought his sigmoid colon up to the anterior abdominal wall. I made a skin incision to accommodate the ostomy. I deepened down through the subcutaneous tissues. I divided the fascia enough to accommodate 3 fingerbreadths. I brought the colon up to the surface. I sutured it to the fascia with 3-0 Vicryl. I closed the fascia at the 10 mm trocar site with 0 Vicryl. I closed skin with 4-0 Monocryl. Dermabond applied. Clean closure was performed. I matured the ostomy next. I performed Brooking sutures with 3-0 Vicryl. I continued maturing the ostomy to the abdominal wall with 3-0 Vicryl. /[id number]/MODL MTDD
[2017-10-01] MEDS: PREGABALIN 75 MG CAP PO SCH ×2 (10:18→20:11)
[2017-10-01] MEDS: DULoxetine 60 MG CAP PO SCH ×2 (10:18→20:11)
[2017-10-01] MEDS: OXYBUTYNIN CHLORIDE 5 MG TAB PO SCH ×2 (10:18→20:11)
[2017-10-01] MEDS: ZINC OXIDE TP SCH ×2 (10:21→23:37)
[2017-10-01] MEDS: DIMETHICONE TP SCH ×2 (10:21→23:37)
[2017-10-01] MEDS ORDERED: ALBUMIN 5% 500 ML IV ONE (12:30)
--- NOTE | 2017-10-01 12:37 | SOAPPROG ---
SOAP Progress Note Assessment/Plan: Assessment: VITAL SIGNS OKAY/AFEBRILE/LABS OKAY/ABDOMEN SOFT OSTOMY QUITE SWOLLEN BUT PINK/ NO OUTPUT YET Plan: SIPS OF CLEARS 10/01/17 12:36 Objective: Vital Signs Temp Pulse Resp BP Pulse Ox 36.9 C 82 16 109/58 L 94 10/01/17 11:49 10/01/17 11:49 10/01/17 11:49 10/01/17 11:49 10/01/17 11:49 Laboratory Results 10/01/17 04:50 10/01/17 04:50 09/30/17 10/01/17 10/02/17 05:59 05:59 05:59 Intake Total 4825 Output Total 1070 1400 Balance 3755 -1400 ICD10 Worksheet Patient Problems: Problems Problem Status Onset C. difficile diarrhea Acute 09/21/16 Cellulitis Acute Paraplegia Acute Severe sepsis with acute organ dysfunction Acute
--- NOTE | 2017-10-01 15:21 | ASMTCMCOM ---
CM Note CM Note Notes: Met w/pt, states has SILK SCREEN CUTTER in am to help get him into electric wheelchair, after that, helps him. Pt has a new colostomy, unclear if will need home health RN to help manage. As of now pt will dc home w/same care. DC Plan: Home w/private pay SILK SCREEN CUTTER Date Signed: 10/01/2017 03:20 PM Electronically Signed By:Jessie Marinelli RN
[2017-10-01] MEDS: HYDROCODONE/APAP 5/325 TAB PO PRN (20:21)
[2017-10-02] MEDS: HYDROmorphONE/DILAUDID 1 MG/ML INJ IVP PRN ×3 (05:53→19:40)
[2017-10-02] MEDS: NS 1,000 ML IV SCH ×2 (09:03→19:39)
[2017-10-02] MEDS: PREGABALIN 75 MG CAP PO SCH ×2 (09:03→22:12)
[2017-10-02] MEDS: DULoxetine 60 MG CAP PO SCH ×2 (09:03→22:11)
[2017-10-02] MEDS: OXYBUTYNIN CHLORIDE 5 MG TAB PO SCH ×2 (09:04→22:12)
[2017-10-02] MEDS: ZINC OXIDE TP SCH ×2 (12:00→22:50)
[2017-10-02] MEDS: DIMETHICONE TP SCH ×2 (12:00→22:50)
--- NOTE | 2017-10-02 13:37 | SOAPPROG ---
SOAP Progress Note Assessment/Plan: Assessment: VITAL SIGNS OKAY/AFEBRILE/LABS OKAY/ABDOMEN SOFT OSTOMY QUITE SWOLLEN BUT PINK/ NO OUTPUT YET Plan: SIPS OF CLEARS 10/01/17 12:36 10/02/17 13:36 Alert/vital signs stable/abdomen soft nontender/ostomy quite swollen but positive flatus Plan advance diet Objective: Vital Signs Temp Pulse Resp BP Pulse Ox 37.1 C 93 14 110/59 L 96 10/02/17 12:00 10/02/17 12:00 10/02/17 12:00 10/02/17 12:00 10/02/17 12:00 Laboratory Results 10/01/17 04:50 10/01/17 04:50 10/01/17 10/02/17 10/03/17 05:59 05:59 05:59 Intake Total 4825 550 Output Total 4009 1938 1454 Balance 3755 -4050 -1450 ICD10 Worksheet Patient Problems: Problems Problem Status Onset C. difficile diarrhea Acute 09/21/16 Cellulitis Acute Paraplegia Acute Severe sepsis with acute organ dysfunction Acute
--- NOTE | 2017-10-02 14:24 | WOCRNPDOC ---
KEELEY Advanced Assessment Note - Colostomy Assessment, Advanced Left Abdomen Colostomy Stoma Colostomy Appliance Intact: Yes Colostomy Appliance Currently in Use: Two Piece Flat, 2 3/4, Cut to Fit Stoma Color: Red Stoma Turgor: Moist Stoma Shape: Round Stoma Height: Protruding Colostomy Effluent: Serosangenous Colostomy Size - Head-to-Toe Length X Width X Depth (cm): 57mm Colostomy Details: End Colostomy Comment/Treatment Details: Patient is well-known to me from previous [facility]. Spoke with him today about colostomy care and teaching. His preference is to have the first appliance change tomorrow with his present. Will have textile bag sewer check with him tomorrow morning to schedule a time that is most convenient. With his permission, I assessed the stoma briefly and initiated orders for samples of ostomy products to be sent to his home. In addition, I provided him w/ basic information about colostomy care and dietary considerations.
[2017-10-03] MEDS: HYDROmorphONE/DILAUDID 1 MG/ML INJ IVP PRN ×3 (00:18→18:33)
[2017-10-03] MEDS: NS 1,000 ML IV SCH ×2 (05:03→15:07)
[2017-10-03] MEDS: OXYBUTYNIN CHLORIDE 5 MG TAB PO SCH ×2 (10:25→20:20)
[2017-10-03] MEDS: PREGABALIN 75 MG CAP PO SCH ×2 (10:25→20:20)
[2017-10-03] MEDS: DULoxetine 60 MG CAP PO SCH ×2 (10:26→20:20)
[2017-10-03] MEDS: DIMETHICONE TP SCH ×2 (10:28→22:20)
[2017-10-03] MEDS: ZINC OXIDE TP SCH ×2 (10:28→22:20)
--- NOTE | 2017-10-03 14:56 | SOAPPROG ---
SOAP Progress Note Assessment/Plan: Assessment/Plan: 46 yo M paraplegic s/p diverting end colostomy POD #3 Colostomy: + gas and some liquid present Advance to regular diet Stoma still edematous but continues to decrease Discharge - would like stool in ostomy before discharge, likely tomorrow S: Patient reports feeling tired but well, he received some colostomy education yesterday O: General: patient is napping in bed, wakes to voice, in no acute distress Abdomen: soft, pain controlled, colostomy appliance intact, stoma edematous but decreasing, no signs of infection 10/03/17 17:57 Objective: Vital Signs Temp Pulse Resp BP Pulse Ox 36.7 C 64 12 109/61 97 10/03/17 08:00 10/03/17 08:00 10/03/17 08:00 10/03/17 08:00 10/03/17 08:00 Laboratory Results 10/01/17 04:50 10/01/17 04:50 10/02/17 10/03/17 10/04/17 05:59 05:59 05:59 Intake Total 550 800 Output Total 4700 3881 Balance -1742 -2404 ICD10 Worksheet Patient Problems: Problems Problem Status Onset C. difficile diarrhea Acute 09/21/16 Cellulitis Acute Paraplegia Acute Severe sepsis with acute organ dysfunction Acute
[2017-10-03] MEDS: HYDROCODONE/APAP 5/325 TAB PO PRN (20:20)
[2017-10-04] MEDS: HYDROCODONE/APAP 5/325 TAB PO PRN (02:21)
[2017-10-04] MEDS: NS 1,000 ML IV SCH (07:15)
[2017-10-04] MEDS: PREGABALIN 75 MG CAP PO SCH ×2 (10:06→21:12)
[2017-10-04] MEDS: OXYBUTYNIN CHLORIDE 5 MG TAB PO SCH ×2 (10:06→21:12)
[2017-10-04] MEDS: DULoxetine 60 MG CAP PO SCH ×2 (10:06→21:12)
[2017-10-04] MEDS: DIMETHICONE TP SCH ×2 (10:11→21:13)
[2017-10-04] MEDS: ZINC OXIDE TP SCH ×2 (10:11→21:13)
--- NOTE | 2017-10-04 10:17 | ASMTCMCOM ---
CM Note CM Note Notes: CM spoke w/ kimberley Pineda RN regarding d/c POC. CM me w/ pt and for dispo planning. Pt reports that he does not need any HC at time of d/c. Pt reports that he will continue w/ his private duty MANUFACTURING LEADER, RN every so often and support of . CM available for changes. Plan: Independent w/ private duty CORINNE, RN and supportive Date Signed: 10/04/2017 10:17 AM Electronically Signed By:CARMELA Ji
--- NOTE | 2017-10-04 13:20 | WOCRNPDOC ---
KEELEY Advanced Assessment Note - Colostomy Assessment, Advanced Left Abdomen Colostomy Stoma Colostomy Appliance Intact: Yes Colostomy Appliance Currently in Use: Two Piece Flat, 2 3/4, Cut to Fit Stoma Color: Purple, Red Stoma Turgor: Moist Stoma Shape: Round Stoma Height: Protruding Mucocutaneus Junction: Intact Colostomy Effluent: Flatus, Liquid, Mixed Fecal/Serosangenous Colostomy Size - Head-to-Toe Length X Width X Depth (cm): 57mm Peristomal Skin: Intact Colostomy Comment/Treatment Details: Patient and both in room and receptive to ostomy teaching. Gathered supplies and provided Day 2 teaching materials. Patient able to perform all required tasks with verbal cues - remove entire appliance, clean and dry stoma and surrounding skin, cut wafer, apply wafer and attach bag. He is highly motivated to perform these tasks independently and, as demonstrated today, can. I did assist with lining up the bag to the wafer and demonstrated this to so she can perform if needed. Patient comfortable with the level of care he has available at home and doesn't feel that he'll need additional support with the ostomy. Will round again tomorrow. Patient informed that the goal of tomorrows session will be for him to perform the entire task without assistance.
[2017-10-04] MEDS ORDERED: POLYETHYLENE GLYCOL 3350 17 GM PKT PO PRN (13:35)
[2017-10-04] MEDS ORDERED: MAGNESIUM HYDROXIDE 30 ML UDCUP PO PRN (13:35)
[2017-10-04] MEDS ORDERED: LACTULOSE 20 GM/30 ML UDCUP PO PRN (13:35)
[2017-10-04] MEDS ORDERED: BISACODYL 10 MG SUPP PR PRN (13:35)
[2017-10-04] MEDS: SENNOSIDES/DOCUSATE SODIUM TAB PO SCH (21:12)
--- NOTE | 2017-10-04 21:12 | SOAPPROG ---
SOAP Progress Note Assessment/Plan: Assessment/Plan: 46 yo M paraplegic s/p diverting end colostomy POD #34 Colostomy: + gas and some liquid present regular diet Bowel protocol Stoma stable Discharge - would like stool in ostomy before discharge, likely tomorrow S: Patient reports feeling well O: General: patient is sitting up in bed eating breakfast Abdomen: soft, pain controlled, colostomy appliance intact, stoma stable and pink 10/03/17 17:57 10/04/17 21:11 Objective: Vital Signs Temp Pulse Resp BP Pulse Ox 36.5 C 90 18 118/65 94 10/04/17 20:57 10/04/17 20:57 10/04/17 20:57 10/04/17 20:57 10/04/17 20:57 Laboratory Results 10/01/17 04:50 10/01/17 04:50 10/03/17 10/04/17 10/05/17 05:59 05:59 05:59 Intake Total 800 1425 800 Output Total 6170 9387 3000 Balance -3350 -6640 -2200 ICD10 Worksheet Patient Problems: Problems Problem Status Onset C. difficile diarrhea Acute 09/21/16 Cellulitis Acute Paraplegia Acute Severe sepsis with acute organ dysfunction Acute
--- NOTE | 2017-10-05 07:59 | SOAPPROG ---
SOAP Progress Note Assessment/Plan: Assessment: 46 yo M paraplegic s/p diverting end colostomy POD #5 Colostomy: + gas and some liquid present. No stool yet regular diet Increase bowel protocol Stoma edematous but stable Discharge - when full return of bowel function S: Patient reports feeling well. still no stool per ostomy O: General: patient is sitting up in bed eating breakfast Abdomen: soft, +BS, nondistended. Nontender. stoma edematous, pink Objective: Vital Signs Temp Pulse Resp BP Pulse Ox 36.7 C 80 14 111/60 93 10/05/17 07:22 10/05/17 07:22 10/05/17 07:22 10/05/17 07:22 10/05/17 07:22 Laboratory Results 10/01/17 04:50 10/01/17 04:50 10/04/17 10/05/17 10/06/17 05:59 05:59 05:59 Intake Total 1425 800 Output Total 1406 1539 Balance -1850 -3197 ICD10 Worksheet Patient Problems: Problems Problem Status Onset C. difficile diarrhea Acute 09/21/16 Cellulitis Acute Paraplegia Acute Severe sepsis with acute organ dysfunction Acute
[2017-10-05] MEDS: OXYBUTYNIN CHLORIDE 5 MG TAB PO SCH ×2 (08:51→20:27)
[2017-10-05] MEDS: SENNOSIDES/DOCUSATE SODIUM TAB PO SCH ×2 (08:51→20:28)
[2017-10-05] MEDS: PREGABALIN 75 MG CAP PO SCH ×2 (08:52→20:28)
[2017-10-05] MEDS: DULoxetine 60 MG CAP PO SCH ×2 (08:52→20:27)
[2017-10-05] MEDS: ZINC OXIDE TP SCH ×2 (09:04→20:27)
[2017-10-05] MEDS: DIMETHICONE TP SCH ×2 (09:04→20:27)
[2017-10-05] MEDS ORDERED: MAGNESIUM CITRATE 300 ML BOTTLE PO PRN (18:37)
[2017-10-05] MEDS: HYDROCODONE/APAP 5/325 TAB PO PRN (20:34)
[2017-10-06 00:25] VITALS: TEMP 98.4
[2017-10-06 08:33] VITALS: BP 122/65; PULSE 69; RESP 18; O2SAT 95
[2017-10-06] MEDS: OXYBUTYNIN CHLORIDE 5 MG TAB PO SCH (08:47)
[2017-10-06] MEDS: SENNOSIDES/DOCUSATE SODIUM TAB PO SCH (08:47)
[2017-10-06] MEDS: DULoxetine 60 MG CAP PO SCH (08:47)
[2017-10-06] MEDS: PREGABALIN 75 MG CAP PO SCH (08:47)
[2017-10-06] MEDS: ZINC OXIDE TP SCH (08:49)
[2017-10-06] MEDS: DIMETHICONE TP SCH (08:49)
--- NOTE | 2017-10-06 08:54 | SOAPPROG ---
SOAP Progress Note Assessment/Plan: Assessment/Plan: 46 yo M paraplegic s/p diverting end colostomy POD #5 Colostomy: + gas and stool regular diet Bowel protocol Stoma stable Discharge home f/u wound clinic S: Patient reports feeling well. did not sleep well O: General: patient is sitting up in bed eating breakfast Abdomen: soft, pain controlled, colostomy appliance intact, stool and gas in bag stoma stable and pink 10/03/17 17:57 10/04/17 21:11 10/06/17 08:53 Objective: Vital Signs Temp Pulse Resp BP Pulse Ox 36.9 C 69 18 122/65 H 95 10/06/17 00:00 10/06/17 08:00 10/06/17 08:00 10/06/17 08:00 10/06/17 08:00 Laboratory Results 10/01/17 04:50 10/01/17 04:50 10/05/17 10/06/17 10/07/17 05:59 05:59 05:59 Intake Total 800 550 Output Total 2995 2330 250 Balance -3195 -1780 -250 ICD10 Worksheet Patient Problems: Problems Problem Status Onset C. difficile diarrhea Acute 09/21/16 Cellulitis Acute Paraplegia Acute Severe sepsis with acute organ dysfunction Acute
--- NOTE | 2017-10-06 08:59 | PDIAF ---
- Diagnosis Diagnosis: paraplegia with new ostomy Code Status: Full Code - Medication Management Discharge Medications: Medications to Continue on Transfer Oxybutynin Chloride 5 mg PO BID 01/26/17 [Last Taken 09/29/17] DULoxetine [Cymbalta 60 MG (*)] 60 mg PO BID 06/16/17 [Last Taken 09/29/17] Dimethicone/Zinc Oxide [Tyrone Protect Cream] 1 skip TP BID 09/29/17 [Last Taken 07:00] Pregabalin [Lyrica 75mg (*)] 75 mg PO BID 09/29/17 [Last Taken 09/29/17] Hydrocodone/APAP 5/325 [Goodwell 5/325 (*)] 1 - 2 tab PO Q4 PRN #20 tab 10/06/17 [ Last Taken Unknown] Discharge Medications: Refer to the Discharge Home Medication list for PRN reason. - Orders Services needed: Home Care, Registered Nurse Home Care Face to Face: I certify that this patient was under my care and that I had the required [id number] encounter meeting the encounter requirements on the discharge day. My findings support the fact that the patient is homebound as defined in Home Care Face to Face Continued: CMS Chapter 7 Medicare Benefits Manual 30.1.1 , The condition of the patient is such that there exists a normal inability to leave home and consequently, leaving home would require a considerable and taxing effort. Isolation Type: None Diet Recommendation: no restrictions on diet Additional: ostomy education and support until returns to work - Follow Up Care Current Providers and Referrals: Luis Hernandez MD [Primary Care Provider] - [facility] [Clinic] - (on a tue or morning with babak and ostomy nurse. I would like to see you in 1-2 weeks)
--- NOTE | 2017-10-06 12:03 | WOCRNPDOC ---
WOCRN Advanced Assessment Note - Colostomy Assessment, Advanced Left Abdomen Colostomy Stoma Colostomy Appliance Intact: Yes Colostomy Appliance Currently in Use: Two Piece Flat, 2 3/4 Stoma Color: Purple, Red Stoma Shape: Round Stoma Height: Protruding Colostomy Comment/Treatment Details: Patient up in wheelchair and going thru DC paperwork with KAILASH Bryan. Patient's appliance was changed earlier today by RN. Patient not interested in another change. All paperwork and accessories placed with patient's belongings. Neither patient nor have any questions at this time. Patient reminded to follow-up at the [facility].
--- NOTE | 2017-10-06 17:00 | ASMTCMCOM ---
CM Note CM Note Notes: Pt discharged home without HHC being arranged. Spoke with pt ([phone]); pt agreeable to HHC; address & phone number confirmed. Pt states he has used [facility] in the past. Spoke with Peggy, at [facility] ([phone]); unable to accept. Spoke with Elise, at [facility]; paperwork faxed; awaiting auth. Pt updated. CM will continue to follow. Date Signed: 10/06/2017 04:59 PM Electronically Signed By:Estefanía Herring RN
--- NOTE | 2017-10-07 14:13 | ASDISCHSUM ---
Discharge Information Plan Status:Home with No Needs Medically Cleared to Leave:10/05/2017 Discharge Date:10/06/2017 10:52 AM D/C Disposition:Home Health Service [facility] D/C Disposition:Home Health Service Projected Discharge Date:10/06/2017 11:00 AM Transportation at D/C: Discharge Delay Reason: Follow-Up Date:10/06/2017 11:00 AM Discharge Slot: Final Diagnosis: Placement Information Referral Type:*Home Health Care Services Referral ID:[facility]-[id number] Provider Name:[facility] Address 1:[address] [address] Phone Number: Address 2: Fax Number: [facility] Selection Factors: State:[place] Patient Contact Information Contact Name:YOGESH Relationship:Mother Address: Work Phone: City: [facility] Phone: [facility] [place] Code: Email: Financial Information Financial Class:Nuzhat Ramos Primary Plan Desc:[facility] Primary Plan Number:[id number] Secondary Plan Desc: Secondary Plan Number: Assessment Information [facility] CM Progress Note CM Note CM Note Notes: Met w/pt, states has [employer] in am to help get him into electric wheelchair, after that, helps him. Pt has a new colostomy, unclear if will need home health RN to help manage. As of now pt will dc home w/same care. DC Plan: Home w/private pay [employer] Date Signed: 10/01/2017 03:20 PM Electronically Signed By:Jessie Marinelli RN [facility] CM Progress Note CM Note CM Note Notes: CM spoke w/ kimberley Pineda RN regarding d/c POC. CM me w/ pt and for dispo planning. Pt reports that he does not need any HC at time of d/c. Pt reports that he will continue w/ his private duty [employer] SUN every so often and support of . CM available for changes. Plan: Independent w/ private duty [employer] and supportive Date Signed: 10/04/2017 10:17 AM Electronically Signed By:CARMELA Ji [facility] CM Progress Note CM Note CM Note Notes: Pt discharged home without HHC being arranged. Spoke with pt ([phone]); pt agreeable to [facility]; address & phone number confirmed. Pt states he has used [facility] in the past. Spoke with Peggy at [facility] ([phone]); unable to accept. Spoke with Elise at [facility]; paperwork faxed; awaiting auth. Pt updated. CM will continue to follow. Date Signed: 10/06/2017 04:59 PM Electronically Signed By:Estefanía Herring RN Case Management Discharge Plan Note Case Management Discharge Discharge Order Complete? Answers: Yes Patient to Obtain Answers: via Family Medications Transportation Arranged Answers: Family/Friends Faxed Final Orders Answers: Yes Agency/Facility Transfer Answers: Yes Report Printed & Faxed to Receiving Agency Family Notified Answers: Yes Discharge Comments Notes: Spoke with Yanelis at [facility] ([phone]); [facility] RN authorized for pt; intake # is [id number]. Updated Alana, at [facility] ([phone]); willing to accept pt. Informed RN will visit pt tomorrow. LVM alerting pt. No other needs at this time. Intervention Information
== END 2017-10-06 10:52 | disposition home health service (06) | DRG 330 ==
LOC: F3N 08:27 → F3E 15:07
PROVIDERS: ADMIT Surgery; ATTEND Surgery
PROC: 0D1N4Z4 Bypass Sigmoid Colon to Cutaneous, Percutaneous Endoscopic Approach (ICD-10-PCS; principal; 2017-09-30 10:00)
PROC: 0DNW4ZZ Release Peritoneum, Percutaneous Endoscopic Approach (ICD-10-PCS; principal; 2017-09-30 10:00)
PROC: 0DTP4ZZ Resection of Rectum, Percutaneous Endoscopic Approach (ICD-10-PCS; principal; 2017-09-30 10:00)
DX: A04.71 Enterocolitis due to Clostridium difficile, recurrent (principal); K56.50 Intestinal adhesions [bands], unspecified as to partial versus complete obstruction; G82.21 Paraplegia, complete; Z89.512 Acquired absence of left leg below knee; E78.5 Hyperlipidemia, unspecified; I10 Essential (primary) hypertension; Z98.1 Arthrodesis status
CPT/HCPCS: J0694; J1100; J1170; J1885; J2250; J2405; J2704; J3010; P9041